=== PATIENT | male | born 1965 | race Caucasian/White ===

== ENCOUNTER 2022-05-13 22:12 | Observation (INO) | payer OTHER ==
[~2022-05-13] VITALS: Ht 175.3 cm; Wt 123.6 kg
[2022-05-13 22:34] VITALS: BP_SYST 158
--- NOTE | 2022-05-13 22:39 | NUR ---
PT from home with c/o chest pain x 3days, dizziness today, near syncopal, and abrasion to left lower leg. Pt ambulatory, A&O X4, and following simple commands. BG 273. VSS. made aware.
[2022-05-13 23:16] LABS: BASOPHILS # (AUTO) 0.1 K/uL (0.0-0.2); BASOPHILS % (AUTO) 0.5 % (0.0-2.0); EOSINOPHILS # (AUTO) 0.3 K/uL (0.0-0.4); EOSINOPHILS % (AUTO) 2.5 % (0.0-4.0); HEMATOCRIT 43.6 % (36-54); LYMPHOCYTES # (AUTO) 2.2 K/uL (1.0-5.5); LYMPHOCYTES % (AUTO) 19.4 % (20.5-51.5); MEAN CORPUSCULAR VOLUME 84 fL (79.0-98.0); MONOCYTES # (AUTO) 0.9 K/uL (0.0-1.0); MONOCYTES % (AUTO) 7.5 % (1.7-9.3); NEUTROPHILS # (AUTO) 8.1 K/uL (1.8-7.7); NEUTROPHILS % (AUTO) 70.1 % (40.0-70.0); PLATELET COUNT (AUTO) 165 K/uL (130-430); RED BLOOD CELL COUNT(AUTO) 5.21 MIL/uL (4.2-6.2); RED CELL DISTRIBUTION WIDTH 13.8 % (9.0-15.0); WHITE BLOOD COUNT (AUTO) 11.6 K/uL (4.8-10.8)
--- NOTE | 2022-05-13 23:25 | NUR ---
MD at bedside with patient for evaluation.
[2022-05-13 23:34] LABS: ANION GAP 6 (5-15); CALCIUM 8.9 mg/dL (8.4-11.0); CHLORIDE 98 mmol/L (98-107); CREATININE 1.41 mg/dL (0.55-1.30); GLUCOSE 308 mg/dL (70-99); POTASSIUM 3.6 mmol/L (3.5-5.1); UREA NITROGEN, BLOOD 28 mg/dL (8-21)
[2022-05-13 23:35] LABS: GFR AFRICAN AMERICAN 66 mL/min (>90)
[2022-05-13 23:36] LABS: BILIRUBIN,URINE NEGATIVE (NEGATIVE); BLOOD, URINE NEGATIVE (NEGATIVE); CLARITY/URINE CLEAR (CLEAR); COLOR,URINE YELLOW (YELLOW); GLUCOSE,URINE TRACE (NEGATIVE); KETONES,URINE NEGATIVE (NEGATIVE); LEUKOCYTE ESTERASE ,URINE NEGATIVE (NEGATIVE); NITRITE, URINE NEGATIVE (NEGATIVE); PROTEIN URINE TRACE (NEGATIVE); UROBILINOGEN,URINE 0.2 (0.2-1.0)
[2022-05-13 23:40] LABS: PROTHROMBIN TIME 10.5 SECS (9.5-12.5)
[2022-05-13 23:43] LABS: ALANINE AMINOTRANSFERASE 30 U/L (12-78); ALBUMIN 3.2 g/dL (3.4-4.8); ASPARTATE AMINOTRANSFERASE 19 U/L (10-37); TOTAL BILIRUBIN 0.6 mg/dL (0.0-1.0)
[2022-05-13] MEDS ORDERED: NITROGLYCERIN 1 INCH (GM) OINT. TP ONE (23:45)
[2022-05-13] MEDS ORDERED: PROCHLORPERAZINE EDISYLATE 10 MG/2 ML VIAL IVP ONE (23:45)
[2022-05-13] MEDS ORDERED: ASPIRIN 325 MG TABLET PO ONE (23:45)
[2022-05-13] MEDS ORDERED: MORPHINE 2 MG/ML INJ. SYRINGE IVP ONE (23:45)
[2022-05-14 00:14] LABS: RBC,URINE NONE SEEN /HPF (0-3)
[2022-05-14 00:15] LABS: BACTERIA,URINE RARE /HPF (None Seen); MUCUS,URINE None Seen /LPF (None Seen); WBC,URINE NONE SEEN /HPF (0-3)
--- NOTE | 2022-05-14 01:57 | NUR ---
COVID-19 ANTIGEN TEST SENT TO LAB.
[2022-05-14] MEDS ORDERED: LOSA100T3 PO (02:30)
[2022-05-14] MEDS ORDERED: FINA5TAB3 PO (02:30)
[2022-05-14] MEDS ORDERED: AMLO5TAB4 PO (02:30)
[2022-05-14] MEDS ORDERED: LOP600 PO (02:30)
[2022-05-14] MEDS ORDERED: FURO80TA86 PO (02:30)
[2022-05-14] MEDS ORDERED: NEU300 PO (02:30)
[2022-05-14] MEDS ORDERED: TAMS-11 PO (02:30)
[2022-05-14] MEDS ORDERED: SPIR25TA6 PO (02:30)
[2022-05-14] MEDS ORDERED: ASPI-1393 PO (02:30)
[2022-05-14] MEDS ORDERED: DOCU-144 PO (02:30)
[2022-05-14] MEDS ORDERED: MONT-40 PO (02:30)
[2022-05-14] MEDS ORDERED: ATEN50TA PO (02:30)
[2022-05-14] MEDS ORDERED: POTA-197 PO (02:30)
--- NOTE | 2022-05-14 02:45 | NUR ---
PT O2 sat decrease durinig sleep to 89%. NC applied at 2L, O2 SAT now 94%.
[2022-05-14] MEDS ORDERED: NACL 0.9% 1,000 ML IV ONE (03:00)
--- NOTE | 2022-05-14 03:05 | NUR ---
Admit bed requested Patient will be admitted to care of Dr. Stephen. Admitted to TELE OBS unit. Diagnosis SYNCOPE Inpatient (Yes or No) NO Observation (Yes or No) YES Orientation concerns or request close to nursing station (Yes or No) NO Covid Status NEGATIVE On vent or bipap NO Isolation requirements NO Needs a sitter NO From Home (Yes or if No enter name of facility) YES Requires Dialysis (Yes or No) NO Med Rec Completed (Yes of No) YES
--- NOTE | 2022-05-14 03:50 | NUR ---
Patient will be admitted to care of Dr. Stephen. Admitted to TELE OBS unit. Will go to room 124a. Belongings list completed. Complete and up to date summary report printed. SBAR report given to Lucía EUGENE at bedside with opportunity for questions.
--- NOTE | 2022-05-14 03:55 | NUR ---
ADMISSION NOTE Received patient from ER via gurney. Patient admitted with diagnosis of syncope. Patient is awake, alert, oriented X 4. Patient oriented to hospital room, call light, toileting, pain management and safety-teach back done. Patient informed that their room number is 124A. Personal belongings checked and Belongings List documented. Call light within reach.
[2022-05-14 04:16] VITALS: BP_SYST 106
[2022-05-14 04:19] VITALS: BP_SYST 110
[2022-05-14] MEDS ORDERED: NALOXONE HCL 0.4 MG/ML AMP (NARCAN) IVP PRN ×2 (08:15)
[2022-05-14] MEDS ORDERED: MUPIROCIN 2% TOPICAL OINTMENT 22 GM NS PRN (08:15)
[2022-05-14] MEDS ORDERED: ONDANSETRON HCL 4 MG/2 ML VIAL IVP PRN (08:15)
[2022-05-14] MEDS ORDERED: DOCUSATE SODIUM 100 MG CAPSULE PO PRN (08:15)
[2022-05-14] MEDS ORDERED: LORazepam 2 MG/ML VIAL IVP PRN (08:15)
[2022-05-14] MEDS ORDERED: ZOLPIDEM TARTRATE 5 MG TABLET PO PRN (08:15)
[2022-05-14] MEDS ORDERED: MORPHINE 2 MG/ML INJ. SYRINGE IVP PRN (08:15)
[2022-05-14] MEDS ORDERED: MAGNESIUM SULFATE 50 ML IV PRN (08:15)
[2022-05-14] MEDS ORDERED: ACETAMINOPHEN 325 MG TABLET PO PRN (08:15)
[2022-05-14 08:22] VITALS: BP_SYST 117
[2022-05-14] MEDS ORDERED: FUROSEMIDE 80 MG TABLET PO SCH (09:00)
[2022-05-14] MEDS ORDERED: ATENOLOL 50 MG TABLET (TENORMIN) PO SCH (09:00)
[2022-05-14] MEDS ORDERED: amLODIPine BESYLATE 5 MG TABLET PO SCH (09:00)
[2022-05-14] MEDS ORDERED: DOCUSATE SODIUM 100 MG CAPSULE PO SCH (09:00)
--- NOTE | 2022-05-14 09:38 | NUR ---
Opening Note: Report rcvd from outgoing RN,all cares assumed.
--- NOTE | 2022-05-14 09:45 | NUR ---
Dr. Hensley making rounds, report given, to review chart and place orders.
[2022-05-14] MEDS: GABAPENTIN 300 MG CAPSULE PO SCH ×3 (10:36→21:34)
[2022-05-14] MEDS: SPIRONOLACTONE 25 MG TABLET (ALDACTONE) PO SCH (10:36)
[2022-05-14] MEDS: GEMFIBROZIL 600 MG TABLET (LOPID) PO SCH ×2 (10:36→21:34)
[2022-05-14] MEDS: ASPIRIN 81 MG TABLET(ECOTRIN) PO SCH (10:37)
[2022-05-14] MEDS: FINASTERIDE 5 MG TABLET (PROSCAR) PO SCH (10:37)
[2022-05-14] MEDS ORDERED: FUROSEMIDE 40 MG/4 ML VIAL IVP ONE (11:00)
[2022-05-14] MEDS: TAMSULOSIN HCL 0.4 MG CAP PO SCH (11:17)
[2022-05-14] MEDS: LOSARTAN POTASSIUM 50 MG TABLET (COZAAR) PO SCH (11:18)
[2022-05-14] MEDS: NACL 0.9% 1,000 ML IV SCH ×2 (11:18→21:41)
[2022-05-14 12:00] VITALS: BP_SYST 123
--- NOTE | 2022-05-14 12:00 | NUR ---
Lunch tray given to patient, bed low and locked, all needs met.
[2022-05-14] MEDS: INSULIN REGULAR, HUMAN 100 UNITS/ML, 3 ML VIAL (humuLIN R) SUBCUT PRN ×3 (12:18→21:28)
[2022-05-14] MEDS: MORPHINE 2 MG/ML INJ. SYRINGE IVP PRN ×3 (12:19→21:36)
--- NOTE | 2022-05-14 12:21 | NUR ---
9/10 Back Pain reported, patient states he has "chronic back pain". PRN given per order.
--- NOTE | 2022-05-14 13:00 | NUR ---
Pain medication effective
--- NOTE | 2022-05-14 15:29 | NUR ---
US Tech at bedside
[2022-05-14 16:00] VITALS: BP_SYST 115
[2022-05-14] MEDS: MONTELUKAST 10 MG TABLET PO SCH (17:18)
--- NOTE | 2022-05-14 17:30 | NUR ---
7/10 chest Pain reported, none radiating, NSR on monitor, PRN Morphine given per order, MD aware, no new orders.
--- NOTE | 2022-05-14 17:50 | NUR ---
Pain medication effective
--- NOTE | 2022-05-14 18:49 | NUR ---
Closing Note: Report given to NOC RN, all cares endorsed.
[2022-05-14 20:00] VITALS: BP_SYST 137
[2022-05-14] MEDS: FUROSEMIDE 40 MG/4 ML VIAL IVP SCH (21:35)
--- NOTE | 2022-05-14 21:36 | NUR ---
Rounds/Pain Pt c/o mid chest pain. VSS. Medicated with Morphine 2mg IVP as needed . No c/o of sob or dizziness. Call light within reach. To monitor.
[2022-05-15 00:43] VITALS: BP_SYST 130
[2022-05-15] MEDS: INSULIN REGULAR, HUMAN 100 UNITS/ML, 3 ML VIAL (humuLIN R) SUBCUT PRN ×4 (06:24→20:39)
--- NOTE | 2022-05-15 06:40 | NUR ---
Closing notes Pt asleep, easily awakens. BS checked 276, 6 units insulin given. Safety maintained. To endorse to AM nurse.
[2022-05-15 07:28] LABS: BASOPHILS % (AUTO) 0.4 % (0.0-2.0); EOSINOPHILS # (AUTO) 0.3 K/uL (0.0-0.4); EOSINOPHILS % (AUTO) 3.1 % (0.0-4.0); HEMATOCRIT 42.9 % (36-54); HEMOGLOBIN 14.5 g/dL (14.0-18.0); LYMPHOCYTES # (AUTO) 1.4 K/uL (1.0-5.5); LYMPHOCYTES % (AUTO) 15.1 % (20.5-51.5); MEAN CORPUSCULAR HEMOGLOBIN 28 pg (27-31); MEAN CORPUSCULAR HGB CONC 34 % (32-36); MEAN CORPUSCULAR VOLUME 84 fL (79.0-98.0); MONOCYTES # (AUTO) 0.8 K/uL (0.0-1.0); MONOCYTES % (AUTO) 8.3 % (1.7-9.3); NEUTROPHILS % (AUTO) 73.1 % (40.0-70.0); PLATELET COUNT (AUTO) 155 K/uL (130-430); RED BLOOD CELL COUNT(AUTO) 5.13 MIL/uL (4.2-6.2); RED CELL DISTRIBUTION WIDTH 13.5 % (9.0-15.0); WHITE BLOOD COUNT (AUTO) 9.5 K/uL (4.8-10.8)
[2022-05-15 07:55] VITALS: BP_SYST 148
--- NOTE | 2022-05-15 07:55 | NUR ---
INITIAL ROUNDS Received pt AAOx4, no s/s resp distress, c/o chest pain to mid chest area-will check on pain medication. No c/o dizziness at this time. Plan of care for the day reviewed with pt-pt verbalized his understanding. IVF infusing well to RAC at ordered rate with no s/s infiltration to site. Pain management, disease process, skin and safety discussed-teach back done. Call light within reach.
[2022-05-15] MEDS: MORPHINE 2 MG/ML INJ. SYRINGE IVP PRN ×2 (08:44→20:41)
[2022-05-15] MEDS: TAMSULOSIN HCL 0.4 MG CAP PO SCH (08:45)
[2022-05-15] MEDS: FUROSEMIDE 40 MG/4 ML VIAL IVP SCH ×2 (08:45→20:21)
[2022-05-15] MEDS: ASPIRIN 81 MG TABLET(ECOTRIN) PO SCH (08:45)
[2022-05-15] MEDS: SPIRONOLACTONE 25 MG TABLET (ALDACTONE) PO SCH (08:46)
[2022-05-15] MEDS: FINASTERIDE 5 MG TABLET (PROSCAR) PO SCH (08:46)
[2022-05-15] MEDS: GABAPENTIN 300 MG CAPSULE PO SCH ×3 (08:46→20:21)
[2022-05-15] MEDS: LOSARTAN POTASSIUM 50 MG TABLET (COZAAR) PO SCH (08:47)
[2022-05-15] MEDS: GEMFIBROZIL 600 MG TABLET (LOPID) PO SCH ×2 (08:48→20:21)
[2022-05-15 08:49] LABS: CALCIUM 8.3 mg/dL (8.4-11.0); CREATININE 1.03 mg/dL (0.55-1.30); POTASSIUM 3.5 mmol/L (3.5-5.1)
[2022-05-15 08:52] LABS: TOTAL BILIRUBIN 0.6 mg/dL (0.0-1.0)
--- NOTE | 2022-05-15 09:44 | NUR ---
TO MRI Pt left floor via wheelchair to MRI in no distress.
--- NOTE | 2022-05-15 10:35 | NUR ---
BACK FROM MRI Pt back from MRI in no distress. property assessment monitor placed back onto pt. No c/o pain or discomfort. Call light within reach.
--- NOTE | 2022-05-15 12:20 | NUR ---
WOUND CARE Wound care nurse saw patient and provided wound care instructions. Wound cleansed with normal saline, photo taken, sure prep applied to the periwound area, Therahoney sheet placed over wound bed, Hydrogel placed onto Therahoney sheet and covered with an Optifoam AG dressing. Foot elevated on a pillow.
--- NOTE | 2022-05-15 12:20 | NUR ---
WOUND EVALUATION: Late note for 1220 secondary to patient care. Wound Consult received from Dr. Stephen. Thank you, Dr. Stephen, for the consult. Patient received in a [place] Bed with an Atmos Air 9000 mattress, awake, alert, and oriented. Patient is able to turn independently. Javier Score is a 22. Past Medical History: Obesity, Diabetes Mellitus, Hypertension, Neuropathy, BPH, questionable CHF, COPD, Dyslipidemia. Recent Labs: WBC 9.5, RBC 5.13, hemoglobin 14.5, hematocrit 42.9, BUN 20, creatinine 1.03, GFR 79, calcium 8.3, glucose 269, POC glucose 273, serum total protein 6.0, albumin 3.0. Intrinsic factors that delay wound healing: Obesity, Diabetes Mellitus, CHF, COPD, Neuropathy. Extrinsic factors that delay wound healing: Decreased mobility. No microbiology reports. Wound Assessment: 1. Left Anterior Briones: Blister, present on admission. Patient reported to the nurse that his blister had opened. Suspect Diabetic/Neuropathic Ulcer versus Venous Insufficiency Ulcer. Wound bed has 70% pink tissue, 30% white tissue. No odor, scant serosanguineous drainage. Periwound intact. Wound measures 4.4 cm x 3.5 cm. Recommend: Cleanse wound with normal saline. Apply SurePrep to josefa-wound. Cut Thera-Honey dressing to size and place over wound. Apply small drop of Hydrogel onto Thera-Honey dressing. Cover with Silver Foam AG 4x4 dressing. Perform wound care daily, and as needed for dressing soiling or dislodgement. Also recommend: Encourage patient to reposition every 2 hours. Offload, elevate and float bilateral lower extremities with pillows. Perform skin care and monitor skin integrity Q shift.
--- NOTE | 2022-05-15 12:36 | NUR ---
C/O DIZZINESS/MD CALLED Pt stated he got up from the bathroom and then got dizzy. Vital signs checked BP 142/85, HR 77, SAO2 94% on room air. Called Dr. Stephen and informed him and MD stated classic Vaso-vagal response. stated to monitor pt's vital signs and to call him if the MRI results are abnormal. If vital signs stable and MRI normal then okay to discharge pt home.
[2022-05-15 13:35] VITALS: BP_SYST 142
[2022-05-15] MEDS ORDERED: HONEY WOUND DRESSING 1 EACH TP PRN (16:15)
[2022-05-15 18:13] VITALS: BP_SYST 109
[2022-05-15] MEDS: MONTELUKAST 10 MG TABLET PO SCH (19:05)
--- NOTE | 2022-05-15 19:31 | NUR ---
CLOSING NOTE Pt sitting up in bed with no s/s resp distress, no c/o pain or discomfort. Still awaiting MRI results. Needs met, call light within reach.
[2022-05-15 20:00] VITALS: BP_SYST 146
--- NOTE | 2022-05-15 20:00 | NUR ---
IV ADMINISTRATION END TIME (Observation Patients ONLY): IV infusion of NS @ 70 started at 05/14/22 and ended at 05/15/22.
--- NOTE | 2022-05-15 20:31 | NUR ---
JULIO CÉSAR AND SPOKE WITH MD SPOKE WITH DR. HARTMAN AND INFORMED HIM MRI RESULT WAS NEGATIVE, BUT PT STATES HE HAS NO RIDE TONIGHT AND C/O LUMP ON R. NECK. PER MD OK TO DISCHARGE TOMORROW AM AND F/U LUMP OUTPATIENT.
[2022-05-16] VITALS: BP_SYST 102
--- NOTE | 2022-05-16 06:50 | NUR ---
CLOSING NOTES PT AAOX4, BS CHECKED 375, 10 UNITS REG INSULIN ADMINISTERED. PT DENIES ANY DIZZINESS. C/O CP 03/20, MEDICATED WITH MORPHINE 2MG IVP NEEDED. SAFETY MAINTAINED. TO ENDORSE TO AM NURSE.
[2022-05-16] MEDS: INSULIN REGULAR, HUMAN 100 UNITS/ML, 3 ML VIAL (humuLIN R) SUBCUT PRN ×2 (07:04→11:33)
[2022-05-16] MEDS: MORPHINE 2 MG/ML INJ. SYRINGE IVP PRN ×2 (07:09→11:31)
[2022-05-16 07:25] LABS: BASOPHILS % (AUTO) 0.6 % (0.0-2.0); EOSINOPHILS # (AUTO) 0.2 K/uL (0.0-0.4); HEMATOCRIT 44.8 % (36-54); HEMOGLOBIN 15.3 g/dL (14.0-18.0); LYMPHOCYTES # (AUTO) 1.5 K/uL (1.0-5.5); LYMPHOCYTES % (AUTO) 18.5 % (20.5-51.5); MEAN CORPUSCULAR HEMOGLOBIN 29 pg (27-31); MEAN CORPUSCULAR HGB CONC 34 % (32-36); MEAN CORPUSCULAR VOLUME 84 fL (79.0-98.0); MONOCYTES # (AUTO) 0.7 K/uL (0.0-1.0); MONOCYTES % (AUTO) 8.5 % (1.7-9.3); NEUTROPHILS # (AUTO) 5.5 K/uL (1.8-7.7); NEUTROPHILS % (AUTO) 69.4 % (40.0-70.0); PLATELET COUNT (AUTO) 159 K/uL (130-430); RED BLOOD CELL COUNT(AUTO) 5.31 MIL/uL (4.2-6.2); RED CELL DISTRIBUTION WIDTH 13.3 % (9.0-15.0)
[2022-05-16 07:41] LABS: CALCIUM 8.6 mg/dL (8.4-11.0); CREATININE 0.99 mg/dL (0.55-1.30); POTASSIUM 3.4 mmol/L (3.5-5.1)
[2022-05-16] MEDS: GEMFIBROZIL 600 MG TABLET (LOPID) PO SCH (08:33)
[2022-05-16] MEDS: TAMSULOSIN HCL 0.4 MG CAP PO SCH (08:33)
[2022-05-16] MEDS: LOSARTAN POTASSIUM 50 MG TABLET (COZAAR) PO SCH (08:33)
[2022-05-16] MEDS: FINASTERIDE 5 MG TABLET (PROSCAR) PO SCH (08:33)
[2022-05-16] MEDS: GABAPENTIN 300 MG CAPSULE PO SCH (08:34)
[2022-05-16] MEDS: ASPIRIN 81 MG TABLET(ECOTRIN) PO SCH (08:34)
[2022-05-16] MEDS: SPIRONOLACTONE 25 MG TABLET (ALDACTONE) PO SCH (08:35)
[2022-05-16] MEDS: FUROSEMIDE 40 MG/4 ML VIAL IVP SCH (08:35)
--- NOTE | 2022-05-16 12:30 | NUR ---
A/OX4,VSS,AMBULATORY AROUND BY SELF.SEEN BY THIS AM AND D/C HOME PER DR ORDER.LEFT SHEEN WOUND CLEANED AND DRESSING CHANGED WITH COLT PER ORDER,D/C IV,D/C UM RN PRIOR TO D/C
--- NOTE | 2022-05-16 15:40 | NUR ---
Dispo code 01
== END 2022-05-16 12:40 | disposition home or self-care (01) ==
LOC: SED 22:12 → STU 05-14 03:00
PROVIDERS: ADMIT General Practice; ATTEND General Practice
DX: G90.9 Disorder of the autonomic nervous system, unspecified (principal); Z20.822 Contact with and (suspected) exposure to COVID-19; R55 Syncope and collapse; E11.65 Type 2 diabetes mellitus with hyperglycemia; E11.43 Type 2 diabetes mellitus with diabetic autonomic (poly)neuropathy; E11.40 Type 2 diabetes mellitus with diabetic neuropathy, unspecified; E44.1 Mild protein-calorie malnutrition; E66.9 Obesity, unspecified; I12.9 Hypertensive chronic kidney disease with stage 1 through stage 4 chronic kidney disease, or unspecified chronic kidney disease; E11.22 Type 2 diabetes mellitus with diabetic chronic kidney disease; N18.30 Chronic kidney disease, stage 3 unspecified; N40.0 Benign prostatic hyperplasia without lower urinary tract symptoms; N17.0 Acute kidney failure with tubular necrosis; E78.00 Pure hypercholesterolemia, unspecified; E78.5 Hyperlipidemia, unspecified; R07.89 Other chest pain; Z79.899 Other long term (current) drug therapy
CPT/HCPCS: 80053 ×2; 81000; 82962 ×4; 83880 ×2; 85025 ×3; 85610; 85730; 84484 ×3; 36415 ×3; 93005 ×2; 71045; 96361 ×2; 96372 ×3; 96374; 96375; 96376 ×3; 93306; 70450; 76376; 93880; 99285; 83036; 87426; 80061; 83735 ×2; 70551; 80048; J0780; J2270 ×4; J1940 ×3; G0378 ×3; J1815

== ENCOUNTER 2022-07-08 13:45 | Inpatient (IN) | payer MEDICAID, OTHER ==
[~2022-07-08] VITALS: Ht 180.3 cm; Wt 117.5 kg
[~2022-07-08 13:45] MED LIST: AMOX-423 PO; ASPI-1393 PO; Bisacodyl Suppository RC; DOCU-144 PO; FINA5TAB3 PO; FURO-150 PO; INSU100V SUBCUT; INSU100V9 SUBCUT; LOP600 PO; LOSA100T3 PO; MONT-40 PO; NEU300 PO; NOR10 PO; TAMS-11 PO; VITD2000 PO
[2022-07-08 14:35] VITALS: BP_SYST 144
[2022-07-08 18:42] LABS: BILIRUBIN,URINE NEGATIVE (NEGATIVE); BLOOD, URINE 2+ (NEGATIVE); CLARITY/URINE CLOUDY (CLEAR); COLOR,URINE YELLOW (YELLOW); GLUCOSE,URINE 3+ (NEGATIVE); KETONES,URINE NEGATIVE (NEGATIVE); LEUKOCYTE ESTERASE ,URINE 2+ (NEGATIVE); NITRITE, URINE NEGATIVE (NEGATIVE); PROTEIN URINE 1+ (NEGATIVE); UROBILINOGEN,URINE 0.2 (0.2-1.0)
[2022-07-08 18:46] LABS: BASOPHILS # (AUTO) 0.1 K/uL (0.0-0.2); BASOPHILS % (AUTO) 0.7 % (0.0-2.0); EOSINOPHILS # (AUTO) 0.4 K/uL (0.0-0.4); EOSINOPHILS % (AUTO) 3.3 % (0.0-4.0); HEMATOCRIT 39.1 % (36-54); HEMOGLOBIN 13.2 g/dL (14.0-18.0); LYMPHOCYTES # (AUTO) 1.6 K/uL (1.0-5.5); MEAN CORPUSCULAR HEMOGLOBIN 28 pg (27-31); MEAN CORPUSCULAR HGB CONC 34 % (32-36); MEAN CORPUSCULAR VOLUME 84 fL (79.0-98.0); MONOCYTES # (AUTO) 0.7 K/uL (0.0-1.0); MONOCYTES % (AUTO) 5.7 % (1.7-9.3); NEUTROPHILS # (AUTO) 9.7 K/uL (1.8-7.7); NEUTROPHILS % (AUTO) 77.3 % (40.0-70.0); PLATELET COUNT (AUTO) 253 K/uL (130-430); RED BLOOD CELL COUNT(AUTO) 4.67 MIL/uL (4.2-6.2); RED CELL DISTRIBUTION WIDTH 14.1 % (9.0-15.0); WHITE BLOOD COUNT (AUTO) 12.5 K/uL (4.8-10.8)
[2022-07-08 19:07] LABS: BACTERIA,URINE MANY /HPF (None Seen); WBC,URINE >100 /HPF (0-3)
[2022-07-08 19:08] LABS: MUCUS,URINE None Seen /LPF (None Seen)
[2022-07-08 19:13] LABS: CALCIUM 9.7 mg/dL (8.4-11.0); CREATININE 1.22 mg/dL (0.55-1.30)
[2022-07-08 19:18] LABS: ALBUMIN 3.5 g/dL (3.4-4.8); TOTAL BILIRUBIN 0.5 mg/dL (0.0-1.0)
[2022-07-08] MEDS ORDERED: NACL 0.9% 1,000 ML IV ONE (19:45)
[2022-07-08] MEDS ORDERED: cefTRIAXone 1 GM in D5W 50 ML IV ONE (19:45)
[2022-07-08] MEDS ORDERED: INSULIN REGULAR, HUMAN 10 UNITS/0.1 ML, 3 ML VIAL IVP ONE (19:45)
[2022-07-08] MEDS ORDERED: ACETAMINOPHEN 325 MG TABLET PO PRN (20:45)
[2022-07-08] MEDS ORDERED: ZOLPIDEM TARTRATE 5 MG TABLET PO PRN (20:45)
[2022-07-08] MEDS ORDERED: POTASSIUM CHLORIDE 20 MEQ TAB.PRT.SR PO PRN (20:45)
[2022-07-08] MEDS ORDERED: NALOXONE HCL 0.4 MG/ML AMP (NARCAN) IVP PRN ×2 (20:45)
[2022-07-08] MEDS ORDERED: MAGNESIUM SULFATE 50 ML IV PRN (20:45)
[2022-07-08] MEDS ORDERED: DOCUSATE SODIUM 100 MG CAPSULE PO PRN (20:45)
[2022-07-08] MEDS ORDERED: NACL 0.9% 1,000 ML IV SCH (20:45)
[2022-07-08] MEDS ORDERED: LORazepam 2 MG/ML VIAL IVP PRN (20:45)
[2022-07-08] MEDS ORDERED: DEXTROSE 50% JECT 50 ML DISP.SYRIN IVP PRN (20:45)
[2022-07-08] MEDS ORDERED: ONDANSETRON HCL 4 MG/2 ML VIAL IVP PRN (20:45)
[2022-07-08] MEDS ORDERED: MUPIROCIN 2% TOPICAL OINTMENT 22 GM NS PRN (20:45)
[2022-07-08] MEDS ORDERED: FUROSEMIDE 20 MG TABLET PO PRN (20:45)
[2022-07-08] MEDS: GABAPENTIN 300 MG CAPSULE PO SCH (21:00)
[2022-07-08] MEDS: GEMFIBROZIL 600 MG TABLET (LOPID) PO SCH (21:00)
[2022-07-08] MEDS: INSULIN GLARGINE 100 UNITS/ML, 10 ML VIAL SUBCUT SCH (21:00)
[2022-07-08] MEDS ORDERED: DOCUSATE SODIUM 100 MG CAPSULE PO SCH (21:00)
[2022-07-08] MEDS ORDERED: MORPHINE 4 MG INJ. 4 MG/ML VIAL IVP ONE ×2 (21:45→23:45)
[2022-07-08] MEDS ORDERED: cefTRIAXone 1 GM IVPB PREMIX 50 ML IV ONE (23:03)
[2022-07-09 00:45] VITALS: BP_SYST 161
[2022-07-09 08:35] LABS: BASOPHILS % (AUTO) 0.3 % (0.0-2.0); EOSINOPHILS # (AUTO) 0.3 K/uL (0.0-0.4); EOSINOPHILS % (AUTO) 2.4 % (0.0-4.0); HEMATOCRIT 37.5 % (36-54); HEMOGLOBIN 12.6 g/dL (14.0-18.0); LYMPHOCYTES % (AUTO) 7.2 % (20.5-51.5); MEAN CORPUSCULAR HEMOGLOBIN 28 pg (27-31); MEAN CORPUSCULAR HGB CONC 34 % (32-36); MEAN CORPUSCULAR VOLUME 83 fL (79.0-98.0); MONOCYTES # (AUTO) 0.9 K/uL (0.0-1.0); MONOCYTES % (AUTO) 6.5 % (1.7-9.3); NEUTROPHILS % (AUTO) 83.6 % (40.0-70.0); PLATELET COUNT (AUTO) 222 K/uL (130-430); WHITE BLOOD COUNT (AUTO) 14.3 K/uL (4.8-10.8)
[2022-07-09 08:54] LABS: CALCIUM 8.9 mg/dL (8.4-11.0); CREATININE 0.97 mg/dL (0.55-1.30)
[2022-07-09] MEDS: TAMSULOSIN HCL 0.4 MG CAP PO SCH (09:29)
[2022-07-09] MEDS: ASPIRIN 81 MG TABLET(ECOTRIN) PO SCH (09:29)
[2022-07-09] MEDS: GEMFIBROZIL 600 MG TABLET (LOPID) PO SCH (09:29)
[2022-07-09] MEDS: LOSARTAN POTASSIUM 50 MG TABLET (COZAAR) PO SCH (09:29)
[2022-07-09] MEDS: amLODIPine BESYLATE 10 MG TABLET PO SCH (09:30)
[2022-07-09] MEDS: GABAPENTIN 300 MG CAPSULE PO SCH ×2 (09:30→16:14)
[2022-07-09] MEDS: FINASTERIDE 5 MG TABLET (PROSCAR) PO SCH (09:30)
[2022-07-09] MEDS: MORPHINE 2 MG/ML INJ. SYRINGE IVP PRN ×3 (09:32→21:00)
[2022-07-09 17:54] VITALS: BP_SYST 181
[2022-07-09] MEDS ORDERED: MONTELUKAST 10 MG TABLET PO SCH (18:00)
[2022-07-09 20:17] VITALS: BP_SYST 110
[2022-07-09] MEDS: INSULIN LISPRO SLIDING SCALE 100 UNITS/ML, 3 ML VIAL (humaLOG) SUBCUT PRN (21:00)
[2022-07-09] MEDS: metroNIDAZOLE 500 mg/NS 100 ML IV SCH (21:00)
[2022-07-09] MEDS ORDERED: cefTRIAXone 1 GM in D5W 50 ML IV SCH (21:00)
[2022-07-09 23:40] LABS: OPIATE, URINE POSITIVE (NEG <=100)
[2022-07-09 23:41] LABS: BARBITURATE, URINE NEGATIVE (NEG <=200); BENZODIAZEPINE, URINE NEGATIVE (NEG <=150); CANNABINOID, URINE NEGATIVE (NEG <=50); COCAINE, URINE NEGATIVE (NEG <=150); METHAMPHETAMINES SCREEN,URINE NEGATIVE (NEG <=500); PHENCYCLIDINE SCREEN,URINE NEGATIVE (NEG <=25); UR TRICYCLIC ANTIDEPRESSANTS POSITIVE (NEG <=300); URINE AMPHETAMINE NEGATIVE (NEG <=500); URINE METHADONE NEGATIVE (NEG <=200); URINE OXYCODONE SCREEN NEGATIVE (NEG <=100); URINE PROPOXYPHENE SCREEN NEGATIVE (NEG <=300)
[2022-07-10 00:25] VITALS: BP_SYST 143
[2022-07-10] MEDS: GABAPENTIN 300 MG CAPSULE PO SCH ×3 (01:12→15:00)
[2022-07-10] MEDS: GEMFIBROZIL 600 MG TABLET (LOPID) PO SCH ×2 (01:13→09:31)
[2022-07-10] MEDS: INSULIN GLARGINE 100 UNITS/ML, 10 ML VIAL SUBCUT SCH (01:32)
[2022-07-10] MEDS: metroNIDAZOLE 500 mg/NS 100 ML IV SCH ×2 (05:58→13:00)
[2022-07-10] MEDS: MORPHINE 2 MG/ML INJ. SYRINGE IVP PRN ×2 (06:03→12:32)
[2022-07-10] MEDS: INSULIN LISPRO SLIDING SCALE 100 UNITS/ML, 3 ML VIAL (humaLOG) SUBCUT PRN ×3 (06:46→12:34)
[2022-07-10 06:53] LABS: CALCIUM 9.2 mg/dL (8.4-11.0); CREATININE 1.01 mg/dL (0.55-1.30)
[2022-07-10 06:56] LABS: BASOPHILS # (AUTO) 0.1 K/uL (0.0-0.2); BASOPHILS % (AUTO) 0.5 % (0.0-2.0); EOSINOPHILS # (AUTO) 0.4 K/uL (0.0-0.4); EOSINOPHILS % (AUTO) 3.6 % (0.0-4.0); HEMATOCRIT 36.4 % (36-54); HEMOGLOBIN 12.2 g/dL (14.0-18.0); LYMPHOCYTES # (AUTO) 1.4 K/uL (1.0-5.5); LYMPHOCYTES % (AUTO) 13.7 % (20.5-51.5); MEAN CORPUSCULAR HEMOGLOBIN 28 pg (27-31); MEAN CORPUSCULAR HGB CONC 34 % (32-36); MEAN CORPUSCULAR VOLUME 85 fL (79.0-98.0); MONOCYTES # (AUTO) 0.8 K/uL (0.0-1.0); MONOCYTES % (AUTO) 7.2 % (1.7-9.3); NEUTROPHILS # (AUTO) 7.9 K/uL (1.8-7.7); PLATELET COUNT (AUTO) 252 K/uL (130-430); RED CELL DISTRIBUTION WIDTH 14.2 % (9.0-15.0); WHITE BLOOD COUNT (AUTO) 10.5 K/uL (4.8-10.8)
[2022-07-10 08:00] VITALS: BP_SYST 143
[2022-07-10] MEDS ORDERED: SULF1TAB48 PO (08:00)
[2022-07-10] MEDS: FINASTERIDE 5 MG TABLET (PROSCAR) PO SCH (09:28)
[2022-07-10] MEDS: ASPIRIN 81 MG TABLET(ECOTRIN) PO SCH (09:28)
[2022-07-10] MEDS: LOSARTAN POTASSIUM 50 MG TABLET (COZAAR) PO SCH (09:28)
[2022-07-10] MEDS: amLODIPine BESYLATE 10 MG TABLET PO SCH (09:29)
[2022-07-10] MEDS: TAMSULOSIN HCL 0.4 MG CAP PO SCH (09:31)
[2022-07-10 15:36] VITALS: BP_SYST 143
== END 2022-07-10 16:00 | disposition home or self-care (01) | DRG 720 ==
LOC: SED 13:45 → SMU 20:21
PROVIDERS: ADMIT General Practice; ATTEND General Practice
DX: A41.9 Sepsis, unspecified organism (principal); E11.40 Type 2 diabetes mellitus with diabetic neuropathy, unspecified; N12 Tubulo-interstitial nephritis, not specified as acute or chronic; E11.65 Type 2 diabetes mellitus with hyperglycemia; E66.9 Obesity, unspecified; E78.5 Hyperlipidemia, unspecified; E86.0 Dehydration; N40.0 Benign prostatic hyperplasia without lower urinary tract symptoms; Z20.822 Contact with and (suspected) exposure to COVID-19; I10 Essential (primary) hypertension; Z91.199 Patient's noncompliance with other medical treatment and regimen due to unspecified reason; Z68.36 Body mass index [BMI] 36.0-36.9, adult
CPT/HCPCS: 36415; 80048; 80053; 80307; 81000; 82962; 83036; 83690; 83735; 85025; 87077; 87081; 87086; 96361; 96365; 96366; 96372; 96375; 99285; J0696; J2270; J3490; J7060

== ENCOUNTER 2022-08-04 09:43 | Inpatient (IN) | payer MEDICAID ==
[~2022-08-04] VITALS: Ht 175.3 cm; Wt 124.3 kg
[~2022-08-04 09:43] MED LIST changes: -AMOX-423 PO; +SULF1TAB48 PO
[2022-08-04 09:49] VITALS: BP_SYST 198
--- NOTE | 2022-08-04 09:52 | NUR ---
Placed in room 03 . Placed on nuclear auxiliary operator, blood pressure machine and pulse oximeter. To gown for exam. Side rails up. Report given to VALORIE VILLA.
--- NOTE | 2022-08-04 09:54 | NUR ---
PATIENT CAME TO ER FROM HOME C/O SLURRED SPEECH SINCE YESTERDAY/ UNABLE TO WALK PLACE IN BED, SEEN BY EDP WITH ORDER ACACIA OUT.
[2022-08-04] MEDS ORDERED: ASPIRIN 81 MG TAB.CHEW PO ONE (10:00)
--- NOTE | 2022-08-04 10:25 | NUR ---
PATIENT TAKEN TO CT SCAN/X-RAY.
--- NOTE | 2022-08-04 10:38 | NUR ---
PATIENT BACK IN BED ON CIRCUIT BOARD DRAFTER, WILL CONTINUE TO MONITOR.
[2022-08-04 10:41] LABS: BASOPHILS # (AUTO) 0.1 K/uL (0.0-0.2); BASOPHILS % (AUTO) 0.4 % (0.0-2.0); HEMATOCRIT 40.7 % (36-54); HEMOGLOBIN 13.4 g/dL (14.0-18.0); LYMPHOCYTES # (AUTO) 1.1 K/uL (1.0-5.5); LYMPHOCYTES % (AUTO) 5.6 % (20.5-51.5); MEAN CORPUSCULAR HEMOGLOBIN 28 pg (27-31); MEAN CORPUSCULAR HGB CONC 33 % (32-36); MEAN CORPUSCULAR VOLUME 84 fL (79.0-98.0); MONOCYTES # (AUTO) 1.4 K/uL (0.0-1.0); MONOCYTES % (AUTO) 7.4 % (1.7-9.3); NEUTROPHILS # (AUTO) 16.2 K/uL (1.8-7.7); NEUTROPHILS % (AUTO) 86.6 % (40.0-70.0); PLATELET COUNT (AUTO) 191 K/uL (130-430); RED BLOOD CELL COUNT(AUTO) 4.86 MIL/uL (4.2-6.2); RED CELL DISTRIBUTION WIDTH 13.7 % (9.0-15.0); WHITE BLOOD COUNT (AUTO) 18.7 K/uL (4.8-10.8)
--- NOTE | 2022-08-04 10:55 | NUR ---
EDP AT BEDSIDE FOR FURTHER ASSESSMENT.
[2022-08-04 11:08] LABS: ANION GAP 9 (5-15); CALCIUM 9.2 mg/dL (8.4-11.0); CHLORIDE 96 mmol/L (98-107); CREATININE 1.65 mg/dL (0.55-1.30); UREA NITROGEN, BLOOD 23 mg/dL (8-21)
[2022-08-04 11:15] LABS: GFR AFRICAN AMERICAN 55 mL/min (>90)
[2022-08-04 11:16] LABS: ALANINE AMINOTRANSFERASE 20 U/L (12-78); ALBUMIN 3.2 g/dL (3.4-4.8); ASPARTATE AMINOTRANSFERASE 20 U/L (10-37); TOTAL BILIRUBIN 0.8 mg/dL (0.0-1.0)
[2022-08-04 11:18] LABS: GLUCOSE 448 mg/dL (70-99)
[2022-08-04] MEDS ORDERED: NACL 0.9% 1,000 ML IV ONE (11:30)
[2022-08-04] MEDS ORDERED: INSULIN REGULAR, HUMAN 10 UNITS/0.1 ML, 3 ML VIAL IVP ONE (11:30)
[2022-08-04] MEDS ORDERED: MECLIZINE HCL 25 MG TABLET (ANITVERT) PO ONE (11:45)
[2022-08-04] MEDS ORDERED: cefTRIAXone 1 GM IVPB PREMIX 50 ML IV ONE (12:45)
--- NOTE | 2022-08-04 13:11 | NUR ---
covid swab collected
--- NOTE | 2022-08-04 13:40 | NUR ---
Admit bed requested Patient will be admitted to care of . Admitted to M/S unit. Diagnosis UTI Inpatient (Yes or No)Y Observation (Yes or No)N Orientation concerns or request close to nursing station (Yes or No) Covid Status PENDING On vent or bipapN Isolation requirementsN Needs a sitter N From Home (Yes or if No enter name of facility)Y Requires Dialysis (Yes or No) N Med Rec Completed (Yes of No)N
[2022-08-04] MEDS ORDERED: MAGNESIUM SULFATE 50 ML IV PRN (13:45)
[2022-08-04] MEDS ORDERED: LORazepam 2 MG/ML VIAL IVP PRN (13:45)
[2022-08-04] MEDS: NACL 0.9% 1,000 ML IV SCH (13:45)
[2022-08-04] MEDS ORDERED: DOCUSATE SODIUM 100 MG CAPSULE PO PRN (13:45)
[2022-08-04] MEDS ORDERED: ZOLPIDEM TARTRATE 5 MG TABLET PO PRN (13:45)
[2022-08-04] MEDS ORDERED: FUROSEMIDE 20 MG TABLET PO PRN (13:45)
[2022-08-04] MEDS ORDERED: ONDANSETRON HCL 4 MG/2 ML VIAL IVP PRN (13:45)
[2022-08-04] MEDS ORDERED: MORPHINE 2 MG/ML INJ. SYRINGE IVP PRN (13:45)
[2022-08-04] MEDS ORDERED: MUPIROCIN 2% TOPICAL OINTMENT 22 GM NS PRN (13:45)
[2022-08-04] MEDS ORDERED: ACETAMINOPHEN 325 MG TABLET PO PRN ×2 (13:45→14:00)
[2022-08-04] MEDS ORDERED: POTASSIUM CHLORIDE 20 MEQ TAB.PRT.SR PO PRN (13:45)
[2022-08-04] MEDS ORDERED: amLODIPine BESYLATE 10 MG TABLET PO ONE (14:30)
[2022-08-04] MEDS ORDERED: LOSARTAN POTASSIUM 50 MG TABLET (COZAAR) PO ONE (14:30)
--- NOTE | 2022-08-04 17:15 | NUR ---
PATIENT ASSISTED WITH REPOSITIONED AND SHEETS CHANGED.
[2022-08-04] MEDS: MONTELUKAST 10 MG TABLET PO SCH (17:31)
--- NOTE | 2022-08-04 20:00 | NUR ---
report was given from other nurse. pt is resting. alert and oriented x 4. pt has and open wound on the left lower leg.
[2022-08-04 20:48] LABS: BILIRUBIN,URINE NEGATIVE (NEGATIVE); BLOOD, URINE 2+ (NEGATIVE); CLARITY/URINE CLOUDY (CLEAR); COLOR,URINE YELLOW (YELLOW); GLUCOSE,URINE 2+ (NEGATIVE); KETONES,URINE NEGATIVE (NEGATIVE); LEUKOCYTE ESTERASE ,URINE 2+ (NEGATIVE); NITRITE, URINE POSITIVE (NEGATIVE); PROTEIN URINE 2+ (NEGATIVE); UROBILINOGEN,URINE 0.2 (0.2-1.0)
[2022-08-04 21:11] LABS: BACTERIA,URINE MODERATE /HPF (None Seen); MUCUS,URINE 1+ /LPF (None Seen); WBC,URINE >100 /HPF (0-3)
[2022-08-04] MEDS: GABAPENTIN 300 MG CAPSULE PO SCH (22:11)
[2022-08-04] MEDS: GEMFIBROZIL 600 MG TABLET (LOPID) PO SCH (22:11)
[2022-08-04] MEDS: HEPARIN SODIUM,PORCINE 5,000 UNITS/ML VIAL SUBCUT SCH (22:14)
[2022-08-04] MEDS: INSULIN NPH/REGULAR 70-30, 100 UNITS/ML, 3 ML VIAL SUBCUT SCH (22:31)
--- NOTE | 2022-08-04 23:00 | NUR ---
put dressing on the left leg open wound. pt is tolerated well. lowered bed. side rail up
[2022-08-05] MEDS: NACL 0.9% 1,000 ML IV SCH ×2 (03:26→12:59)
--- NOTE | 2022-08-05 05:35 | NUR ---
pt is resting, his turning and reposition by himself. no acute respiratory distress noted
[2022-08-05] MEDS ORDERED: INSULIN REGULAR, HUMAN 10 UNITS/0.1 ML, 3 ML VIAL ONE (07:27)
[2022-08-05 07:32] LABS: BASOPHILS # (AUTO) 0.1 K/uL (0.0-0.2); BASOPHILS % (AUTO) 0.3 % (0.0-2.0); HEMATOCRIT 40.7 % (36-54); HEMOGLOBIN 13.6 g/dL (14.0-18.0); LYMPHOCYTES % (AUTO) 4.8 % (20.5-51.5); MEAN CORPUSCULAR HEMOGLOBIN 28 pg (27-31); MEAN CORPUSCULAR HGB CONC 33 % (32-36); MEAN CORPUSCULAR VOLUME 83 fL (79.0-98.0); MONOCYTES # (AUTO) 1.5 K/uL (0.0-1.0); NEUTROPHILS # (AUTO) 18.8 K/uL (1.8-7.7); NEUTROPHILS % (AUTO) 87.9 % (40.0-70.0); PLATELET COUNT (AUTO) 169 K/uL (130-430); RED CELL DISTRIBUTION WIDTH 13.9 % (9.0-15.0); WHITE BLOOD COUNT (AUTO) 21.4 K/uL (4.8-10.8)
[2022-08-05 07:51] LABS: CALCIUM 8.8 mg/dL (8.4-11.0); CREATININE 1.55 mg/dL (0.55-1.30)
--- NOTE | 2022-08-05 08:56 | NUR ---
ASSUMED PATIENT CARE ON MEAT SCRUBBER, EYE CLOSE EASILY AROUSE, NO ACUTE DISTRESS NOTED, WILL CONTINUE TO MONITOR.
[2022-08-05] MEDS ORDERED: cefTRIAXone 1 GM in D5W 50 ML IV SCH (09:00)
[2022-08-05] MEDS: PIPERACILLIN/TAZO 3.375/DEX-IS 50 ML IV SCH ×3 (09:28→17:33)
[2022-08-05] MEDS ORDERED: INSULIN NPH/REGULAR 70-30, 100 UNITS/ML, 3 ML VIAL ONE (09:44)
[2022-08-05] MEDS: INSULIN NPH/REGULAR 70-30, 100 UNITS/ML, 3 ML VIAL SUBCUT SCH ×2 (09:44→20:50)
--- NOTE | 2022-08-05 10:28 | NUR ---
[facility] Admitted to m/s unit. Will go to room 119 a. Belongings list completed. Complete and up to date summary report printed. SBAR report to be given at bedside with opportunity for questions.
--- NOTE | 2022-08-05 10:29 | NUR ---
CONSULTATION PAGED REASON FOR CONSULTATION SEPSIS WAS CONSULT CALED?Y PERSON WHO WAS NOTIFIED:ARYAN CONSULTING PHYSICIAN:RIYA GALICIA BRAKE COUPLER [place] SPECIALTY:INFECTIOUS DISEASE BRAKE COUPLER [place] PHONE NUMBER:[phone] RE[facility]ING PH[facility]IC[facility]
[2022-08-05 10:30] VITALS: BP_SYST 155
[2022-08-05 10:39] VITALS: BP_SYST 155
[2022-08-05] MEDS: GABAPENTIN 300 MG CAPSULE PO SCH ×3 (11:11→20:42)
[2022-08-05] MEDS: TAMSULOSIN HCL 0.4 MG CAP PO SCH (11:11)
[2022-08-05] MEDS: GEMFIBROZIL 600 MG TABLET (LOPID) PO SCH ×2 (11:11→20:42)
[2022-08-05] MEDS: FINASTERIDE 5 MG TABLET (PROSCAR) PO SCH (11:12)
[2022-08-05] MEDS: ASPIRIN 81 MG TABLET(ECOTRIN) PO SCH (11:12)
[2022-08-05] MEDS: LOSARTAN POTASSIUM 50 MG TABLET (COZAAR) PO SCH (11:14)
[2022-08-05] MEDS: amLODIPine BESYLATE 10 MG TABLET PO SCH (11:14)
[2022-08-05] MEDS: HEPARIN SODIUM,PORCINE 5,000 UNITS/ML VIAL SUBCUT SCH ×2 (11:17→20:44)
[2022-08-05] MEDS: MORPHINE 2 MG/ML INJ. SYRINGE IVP PRN ×2 (11:24→16:20)
[2022-08-05 12:00] VITALS: BP_SYST 129
[2022-08-05] MEDS: INSULIN REGULAR, HUMAN 100 UNITS/ML, 3 ML VIAL (humuLIN R) SUBCUT PRN ×3 (12:16→20:50)
[2022-08-05 13:52] VITALS: BP_SYST 129
[2022-08-05] MEDS: MONTELUKAST 10 MG TABLET PO SCH (17:32)
[2022-08-05 18:32] VITALS: BP_SYST 133
--- NOTE | 2022-08-05 19:30 | NUR ---
OPENING NOTE Pt is awake lying in bed. No s/s of respiratory distress. Breathing even and unlabored on 2L nasal cannula. Pt is a/o x4, weak and lethargic, unable to ambulate. Fall and safety precautions in place with bed in lowest position, bed alarm on, and call light within reach
[2022-08-05 20:00] VITALS: BP_SYST 100
--- NOTE | 2022-08-06 00:15 | NUR ---
ROUNDS Pt is lying in bed, eyes closed. Breathing even and unlabored. Fall and safety checks in place
[2022-08-06] MEDS: PIPERACILLIN/TAZO 3.375/DEX-IS 50 ML IV SCH ×5 (00:26→23:14)
[2022-08-06] MEDS: NACL 0.9% 1,000 ML IV SCH ×3 (00:27→20:57)
[2022-08-06 00:44] VITALS: BP_SYST 109
[2022-08-06] MEDS: INSULIN REGULAR, HUMAN 100 UNITS/ML, 3 ML VIAL (humuLIN R) SUBCUT PRN ×3 (06:26→17:53)
--- NOTE | 2022-08-06 06:51 | NUR ---
CLOSING NOTE Pt is awake lying in bed. No s/s of respiratory distress. Breathing even and unlabored on 3L nasal cannula. IV site intact and patent with fluids running at ordered rate. All needs met throughout shift. Fall and safety precautions in place with bed in lowest position, bed alarm on, and call light within reach
[2022-08-06 07:06] LABS: BASOPHILS # (AUTO) 0.1 K/uL (0.0-0.2); BASOPHILS % (AUTO) 0.6 % (0.0-2.0); EOSINOPHILS # (AUTO) 0.1 K/uL (0.0-0.4); EOSINOPHILS % (AUTO) 0.9 % (0.0-4.0); HEMATOCRIT 36.3 % (36-54); HEMOGLOBIN 11.9 g/dL (14.0-18.0); LYMPHOCYTES # (AUTO) 1.7 K/uL (1.0-5.5); LYMPHOCYTES % (AUTO) 12.6 % (20.5-51.5); MEAN CORPUSCULAR HEMOGLOBIN 27 pg (27-31); MEAN CORPUSCULAR HGB CONC 33 % (32-36); MEAN CORPUSCULAR VOLUME 83 fL (79.0-98.0); MONOCYTES # (AUTO) 1.6 K/uL (0.0-1.0); MONOCYTES % (AUTO) 11.8 % (1.7-9.3); NEUTROPHILS # (AUTO) 10.2 K/uL (1.8-7.7); PLATELET COUNT (AUTO) 149 K/uL (130-430); RED BLOOD CELL COUNT(AUTO) 4.35 MIL/uL (4.2-6.2); RED CELL DISTRIBUTION WIDTH 14.2 % (9.0-15.0); WHITE BLOOD COUNT (AUTO) 13.7 K/uL (4.8-10.8)
[2022-08-06 07:38] LABS: CALCIUM 8.2 mg/dL (8.4-11.0); CREATININE 1.98 mg/dL (0.55-1.30)
--- NOTE | 2022-08-06 07:55 | NUR ---
Patient received awake and alert, able to communicate needs. Patient is med surg. No edema noted. Patient received on 3L nasal canula, tolerating well. Extension tubing provided for NC. Patient is continent gi/gu. Using urinal at bedside. Patient has generalized weakness, able to stand with moderate to minimal assist. Patient transferred to chair this AM with staff. Patient has IV to right ac patent and flushing well.
[2022-08-06 08:00] VITALS: BP_SYST 122
[2022-08-06] MEDS: HEPARIN SODIUM,PORCINE 5,000 UNITS/ML VIAL SUBCUT SCH ×2 (08:41→20:54)
[2022-08-06] MEDS: amLODIPine BESYLATE 10 MG TABLET PO SCH (08:42)
[2022-08-06] MEDS: TAMSULOSIN HCL 0.4 MG CAP PO SCH (08:42)
[2022-08-06] MEDS: LOSARTAN POTASSIUM 50 MG TABLET (COZAAR) PO SCH (08:42)
[2022-08-06] MEDS: FINASTERIDE 5 MG TABLET (PROSCAR) PO SCH (08:42)
[2022-08-06] MEDS: GEMFIBROZIL 600 MG TABLET (LOPID) PO SCH ×2 (08:43→20:50)
[2022-08-06] MEDS: GABAPENTIN 300 MG CAPSULE PO SCH ×3 (08:43→20:50)
[2022-08-06] MEDS: ASPIRIN 81 MG TABLET(ECOTRIN) PO SCH (08:43)
[2022-08-06] MEDS: INSULIN NPH/REGULAR 70-30, 100 UNITS/ML, 3 ML VIAL SUBCUT SCH ×2 (08:46→21:09)
[2022-08-06] MEDS: MORPHINE 2 MG/ML INJ. SYRINGE IVP PRN ×2 (10:06→20:52)
--- NOTE | 2022-08-06 10:43 | NUR ---
Dietitian Recommendations * Continue consistent CHO diet * Recommend Glucerna once/day (vanilla flavor) * Consider wound supplements: MVI, 250 mg VIT C, Mikey BID (fruit punch) * Consider 220mg ZnSO4 x 14 days for wound healing GS, MPH, RD Please refer to RD Assessment for further details Addendum: 08/06/22 at [address] Amended: Links added.
[2022-08-06 11:12] VITALS: BP_SYST 123
[2022-08-06 15:25] LABS: NEUTROPHILS % (AUTO) 74.1 % (40.0-70.0)
--- NOTE | 2022-08-06 15:42 | NUR ---
Patient complained of abdominal pain initially now complaining of chest pain, Dr Zafar hamm. Addendum: 08/06/22 at 1614 by [facility], VALORIE EUGENE Correction, patient states he has epigastric pain. Reports feeling better now with pain medication. Patient returned to bed. Bed in [facility] setting.
[2022-08-06 15:50] VITALS: BP_SYST 106
--- NOTE | 2022-08-06 16:35 | NUR ---
Patient reports feeling that discomfort is more of feeling " like I have to go to the bathroom" Patient placed on bed spivey for BM. Patient requested to go to bathroom but appears unsteady when attempting to move to sitting position.
[2022-08-06] MEDS: MONTELUKAST 10 MG TABLET PO SCH (17:49)
--- NOTE | 2022-08-06 18:11 | NUR ---
Nutrition Note: Ordered: Glucerna BID, Mikey BID (supplements yield 620 kcals and 25g PRO) Heena Lin MPH, RDN
--- NOTE | 2022-08-06 18:16 | NUR ---
IV infiltrated, new iv placed on left fa 22g.
--- NOTE | 2022-08-06 19:30 | NUR ---
OPENING NOTE Pt is awake lying in bed. No s/s of respiratory distress. Breathing even and unlabored on 3L nasal cannula saturating 97%. Able to make needs known. Fall and safety precautions in place with bed in lowest position, bed alarm on, and call light within reach
[2022-08-06 20:00] VITALS: BP_SYST 139
[2022-08-06] MEDS: INSULIN GLARGINE 100 UNITS/ML, 10 ML VIAL SUBCUT SCH (21:10)
[2022-08-07 00:11] VITALS: BP_SYST 131
--- NOTE | 2022-08-07 00:15 | NUR ---
ROUNDS Pt is awake lying in bed. Breathing even and unlabored. Fall and safety checks in place
[2022-08-07] MEDS: MORPHINE 2 MG/ML INJ. SYRINGE IVP PRN ×3 (01:10→12:03)
[2022-08-07] MEDS: NACL 0.9% 1,000 ML IV SCH ×2 (06:02→13:52)
[2022-08-07] MEDS: PIPERACILLIN/TAZO 3.375/DEX-IS 50 ML IV SCH (06:02)
[2022-08-07] MEDS: INSULIN REGULAR, HUMAN 100 UNITS/ML, 3 ML VIAL (humuLIN R) SUBCUT PRN (06:13)
[2022-08-07 07:06] LABS: BASOPHILS % (AUTO) 0.4 % (0.0-2.0); EOSINOPHILS # (AUTO) 0.3 K/uL (0.0-0.4); EOSINOPHILS % (AUTO) 3.2 % (0.0-4.0); HEMATOCRIT 34.8 % (36-54); HEMOGLOBIN 11.6 g/dL (14.0-18.0); LYMPHOCYTES % (AUTO) 10.3 % (20.5-51.5); MEAN CORPUSCULAR HEMOGLOBIN 28 pg (27-31); MEAN CORPUSCULAR HGB CONC 33 % (32-36); MEAN CORPUSCULAR VOLUME 83 fL (79.0-98.0); MONOCYTES % (AUTO) 10.7 % (1.7-9.3); NEUTROPHILS # (AUTO) 7.4 K/uL (1.8-7.7); NEUTROPHILS % (AUTO) 75.4 % (40.0-70.0); PLATELET COUNT (AUTO) 146 K/uL (130-430); RED CELL DISTRIBUTION WIDTH 14.1 % (9.0-15.0); WHITE BLOOD COUNT (AUTO) 9.8 K/uL (4.8-10.8)
--- NOTE | 2022-08-07 07:25 | NUR ---
OPENING NOTE Received report from VALORIE Castrejon. Upon entering room, patient is awake, alert, and oriented laying in bed. He reports pain at this time. IV site intact. Call light within reach. All safety precautions observed. Will continue to monitor patient's pain.
[2022-08-07 07:41] LABS: CALCIUM 8.3 mg/dL (8.4-11.0); CREATININE 1.35 mg/dL (0.55-1.30)
[2022-08-07 08:15] VITALS: BP_SYST 123
[2022-08-07] MEDS ORDERED: SULF1TAB47 PO (08:59)
--- NOTE | 2022-08-07 09:36 | NUR ---
CONSULT NEPHROLOGY HYPONATREMIA DR CERRATO,ABID [phone] DR HOUSE ELECTRIC WIRER [facility]
--- NOTE | 2022-08-07 10:00 | NUR ---
SPOKE WITH CONSULT Spoke with MD Stas. Received orders.
[2022-08-07] MEDS ORDERED: SODIUM CHLORIDE 500 MG TABLET PO ONE (10:15)
[2022-08-07] MEDS: TAMSULOSIN HCL 0.4 MG CAP PO SCH (10:39)
[2022-08-07] MEDS: ASPIRIN 81 MG TABLET(ECOTRIN) PO SCH (10:39)
[2022-08-07] MEDS: GEMFIBROZIL 600 MG TABLET (LOPID) PO SCH ×2 (10:39→21:34)
[2022-08-07] MEDS: FINASTERIDE 5 MG TABLET (PROSCAR) PO SCH (10:39)
[2022-08-07] MEDS: GABAPENTIN 300 MG CAPSULE PO SCH ×3 (10:39→21:34)
[2022-08-07] MEDS: amLODIPine BESYLATE 10 MG TABLET PO SCH (10:40)
[2022-08-07] MEDS: LOSARTAN POTASSIUM 50 MG TABLET (COZAAR) PO SCH (10:41)
[2022-08-07] MEDS: HEPARIN SODIUM,PORCINE 5,000 UNITS/ML VIAL SUBCUT SCH ×2 (10:57→21:35)
[2022-08-07] MEDS: INSULIN NPH/REGULAR 70-30, 100 UNITS/ML, 3 ML VIAL SUBCUT SCH ×2 (11:59→21:36)
[2022-08-07] MEDS: guaiFENesin/DEXTROMETHORPHAN 10 ML UDC PO PRN ×2 (12:04→16:37)
--- NOTE | 2022-08-07 13:00 | NUR ---
PATIENT REFUSED PT TREATMENT TODAY. RN ALREADY GAVE PAIN MEDICATION AN HOUR PRIOR TO PT ATTEMPT, BUT PATIENT STATES HE IS STILL IN A LOT OF PAIN. PATIENT REQUEST THERAPIST TO RETURN FOR PT IN THE AM.
[2022-08-07] MEDS: cefTRIAXone 1 GM in D5W 50 ML IV SCH (13:52)
--- NOTE | 2022-08-07 14:15 | NUR ---
PT REFUSING CRAMER Patient states he does not want a Cramer catheter due to pain. He was educated on the reason the Cramer is needed.
[2022-08-07] MEDS ORDERED: BISACODYL 10 MG/SUPPOSITORY RC PRN (14:30)
[2022-08-07] MEDS ORDERED: POLYETHYLENE GLYCOL 3350, 17 GM/ POWD.PACK PO ONE (15:00)
[2022-08-07 15:55] LABS: CALCIUM 8.5 mg/dL (8.4-11.0); CREATININE 1.25 mg/dL (0.55-1.30)
[2022-08-07 16:15] VITALS: BP_SYST 143
--- NOTE | 2022-08-07 17:02 | NUR ---
PT REFUSING CRAMER Patient continuing to refuse Cramer at this time despite education given to patient.
[2022-08-07] MEDS: MONTELUKAST 10 MG TABLET PO SCH (17:25)
--- NOTE | 2022-08-07 18:41 | NUR ---
IV INSERTION ATTEMPT IV site attempted 3 times. Will endorse to shift mechanic.
--- NOTE | 2022-08-07 18:42 | NUR ---
CLOSING NOTE Patient sleeping in bed soundly at this time. He denies any pain or discomfort. No IV at this time. Dinner at the bedside. Call light within reach. All safety precautions observed.
[2022-08-07 19:34] LABS: BARBITURATE, URINE NEGATIVE (NEG <=200); BENZODIAZEPINE, URINE NEGATIVE (NEG <=150); CANNABINOID, URINE NEGATIVE (NEG <=50); COCAINE, URINE NEGATIVE (NEG <=150); METHAMPHETAMINES SCREEN,URINE NEGATIVE (NEG <=500); OPIATE, URINE POSITIVE (NEG <=100); PHENCYCLIDINE SCREEN,URINE NEGATIVE (NEG <=25); UR TRICYCLIC ANTIDEPRESSANTS POSITIVE (NEG <=300); URINE AMPHETAMINE NEGATIVE (NEG <=500); URINE METHADONE NEGATIVE (NEG <=200); URINE OXYCODONE SCREEN NEGATIVE (NEG <=100); URINE PROPOXYPHENE SCREEN NEGATIVE (NEG <=300)
[2022-08-07 20:00] VITALS: BP_SYST 148
--- NOTE | 2022-08-07 20:00 | NUR ---
pt is awake and oriented x4. belly still distended. he is in nasal canula 4 liter. pt satng
--- NOTE | 2022-08-07 20:30 | NUR ---
pt desired some juice, I have to remind him that he is diabetic. pt understood. he said he doesn't wish to have guthrie at this moment.
[2022-08-07] MEDS: INSULIN GLARGINE 100 UNITS/ML, 10 ML VIAL SUBCUT SCH (21:38)
[2022-08-07 22:01] LABS: CHLORIDE,URINE RANDOM 15 mmol/L (55-125); POTASSIUM,URINE RANDOM 19 mmol/L (12-75); URINE SODIUM, RANDOM 14 mmol/L (40-220)
[2022-08-08 00:24] VITALS: BP_SYST 125
--- NOTE | 2022-08-08 05:41 | NUR ---
PT DID NOT URINATE ON 12 NOC SHIFT VALORIE MAGANA HAS BEEN NOTIFIED AND IS AWARE
[2022-08-08] MEDS: NACL 0.9% 1,000 ML IV SCH (07:02)
--- NOTE | 2022-08-08 07:04 | NUR ---
pt doesnt need insulin coverage since blood sugar 153
[2022-08-08 07:26] LABS: BASOPHILS % (AUTO) 0.3 % (0.0-2.0); EOSINOPHILS # (AUTO) 0.2 K/uL (0.0-0.4); EOSINOPHILS % (AUTO) 2.3 % (0.0-4.0); HEMATOCRIT 34.2 % (36-54); HEMOGLOBIN 11.4 g/dL (14.0-18.0); LYMPHOCYTES # (AUTO) 0.6 K/uL (1.0-5.5); LYMPHOCYTES % (AUTO) 7.4 % (20.5-51.5); MEAN CORPUSCULAR HEMOGLOBIN 28 pg (27-31); MEAN CORPUSCULAR HGB CONC 33 % (32-36); MEAN CORPUSCULAR VOLUME 83 fL (79.0-98.0); MONOCYTES # (AUTO) 0.8 K/uL (0.0-1.0); MONOCYTES % (AUTO) 9.3 % (1.7-9.3); NEUTROPHILS # (AUTO) 6.9 K/uL (1.8-7.7); NEUTROPHILS % (AUTO) 80.7 % (40.0-70.0); PLATELET COUNT (AUTO) 185 K/uL (130-430); RED BLOOD CELL COUNT(AUTO) 4.12 MIL/uL (4.2-6.2); WHITE BLOOD COUNT (AUTO) 8.5 K/uL (4.8-10.8)
[2022-08-08] MEDS: guaiFENesin/DEXTROMETHORPHAN 10 ML UDC PO PRN (07:35)
[2022-08-08 07:44] LABS: CALCIUM 8.3 mg/dL (8.4-11.0); CREATININE 0.99 mg/dL (0.55-1.30)
[2022-08-08 08:00] VITALS: BP_SYST 147
[2022-08-08] MEDS: ASPIRIN 81 MG TABLET(ECOTRIN) PO SCH (09:07)
[2022-08-08] MEDS: SODIUM CHLORIDE 500 MG TABLET PO SCH (09:07)
[2022-08-08] MEDS: POLYETHYLENE GLYCOL 3350, 17 GM/ POWD.PACK PO SCH (09:07)
[2022-08-08] MEDS: TAMSULOSIN HCL 0.4 MG CAP PO SCH (09:07)
[2022-08-08] MEDS: amLODIPine BESYLATE 10 MG TABLET PO SCH (09:08)
[2022-08-08] MEDS: GEMFIBROZIL 600 MG TABLET (LOPID) PO SCH ×2 (09:10→22:56)
[2022-08-08] MEDS: INSULIN NPH/REGULAR 70-30, 100 UNITS/ML, 3 ML VIAL SUBCUT SCH ×2 (09:10→23:10)
[2022-08-08] MEDS: GABAPENTIN 300 MG CAPSULE PO SCH ×3 (09:10→22:56)
[2022-08-08] MEDS: LOSARTAN POTASSIUM 50 MG TABLET (COZAAR) PO SCH (09:16)
[2022-08-08] MEDS: HEPARIN SODIUM,PORCINE 5,000 UNITS/ML VIAL SUBCUT SCH ×2 (09:16→23:08)
[2022-08-08] MEDS: FINASTERIDE 5 MG TABLET (PROSCAR) PO SCH (09:18)
[2022-08-08] MEDS: INSULIN REGULAR, HUMAN 100 UNITS/ML, 3 ML VIAL (humuLIN R) SUBCUT PRN ×3 (11:28→23:11)
[2022-08-08 11:54] VITALS: BP_SYST 113
[2022-08-08] MEDS: MORPHINE 2 MG/ML INJ. SYRINGE IVP PRN ×2 (12:14→23:16)
[2022-08-08] MEDS: cefTRIAXone 1 GM in D5W 50 ML IV SCH (12:37)
[2022-08-08 12:58] VITALS: BP_SYST 136
--- NOTE | 2022-08-08 16:15 | NUR ---
Discharge Planning: DCP faxed [facility] [phone] [facility], [facility] [phone] DCP to follow up
[2022-08-08] MEDS: MONTELUKAST 10 MG TABLET PO SCH (17:02)
[2022-08-08 17:25] VITALS: BP_SYST 136
--- NOTE | 2022-08-08 18:30 | NUR ---
ATTEMPTED SEVERAL TIMES THROUGHOUT THE DAY TO CONTACT PATIENT'S SISTER KYUNG AT [phone] TO DISCHARGE PATIENT HOME. THE ADDRESS ON THE FACE SHEET IS INCORRECT AND PATIENT STATES HE DOES NO KNOW HIS PHYSICAL ADDRESS. PATIENT KNOWS ONLY [address]. CHARGE NURSE AND BRUSH MAKER MACHINE AWARE AND ATTEMPTED TO CONTACT KYUNG WELL. MESSAGES LEFT FOR KYUNG TO CALL US BACK AND GIVE US THE ADDRESS SO WE CAN ORDER A UBER FOR THE PATIENT, NO RESPONSE FROM THE SISTER. UNABLE TO DISCHARGE PATIENT HOME DUE TO NO CONTACT WITH FAMILY AND NOT HAVING THE PATIENT'S CORRECT ADDRESS. WILL ATTEMPT TO DISCHARGE PATIENT AGAIN TOMORROW. Michelle LONDONO RN.
[2022-08-08 19:50] VITALS: BP_SYST 142
--- NOTE | 2022-08-08 19:50 | NUR ---
INITIAL NOTE AT INITIAL ASSESSMENT, PATIENT IS RESTING IN BED, STABLE, NO SIGNS OF RESPIRATORY DISTRESS. PLAN OF CARE FOR THE EVENING IS COMMUNICATED WITH THE PATIENT. PATIENT VERBALIZES NO PAIN. PATIENT IS ON 4L NC AT THIS TIME WITH OXYGEN SATURATION 94%. PATIENT DEMONSTRATES CORRECT USAGE OF CALL LIGHT AT THIS TIME. BED IS LOCKED, ALARMED, AND AT THE LOWEST LEVEL. FALL, SAFETY, RESPIRATORY, AND ASPIRATION PRECAUTIONS WILL BE TAKEN THROUGHOUT THE SHIFT.
--- NOTE | 2022-08-08 22:30 | NUR ---
HYGIENE CARE HYGIENE CARE IS PROVIDED. FRESH LINENS PROVIDED. PATIENT TOLERATED WELL. HE IS REPOSITIONED FOR COMFORT.
[2022-08-08] MEDS: INSULIN GLARGINE 100 UNITS/ML, 10 ML VIAL SUBCUT SCH (23:10)
[2022-08-09] VITALS: BP_SYST 136
--- NOTE | 2022-08-09 02:45 | NUR ---
COMMUNICATION W/ DR. HARTMAN / STRAIGHT CATHETER PATIENT HAD A VERY LARGE BOWEL MOVEMENT, HYGIENE CARE PROVIDED AT THIS TIME. PATIENT ALSO VERBALIZED THAT HE HAS NOT PEED IN OVER TWO NIGHTS. BLADDER SCAN PERFORMED SHOWED >999 ML URINE RETENTION. Zoya CRESPO MD GAVE ORDERS FOR STRAIGHT CATH AT THIS TIME. STRAIGHT CATH PERFORMED AT THIS TIME, PATIENT TOLERATED WELL. TOTAL OF 1500ML URINE OUTPUT COLLECTED.
--- NOTE | 2022-08-09 05:15 | NUR ---
HYGIENE CARE HYGIENE CARE IS PROVIDED. FRESH LINENS PROVIDED. PATIENT TOLERATED WELL. SHE IS REPOSITIONED FOR COMFORT.
[2022-08-09] MEDS: NACL 0.9% 1,000 ML IV SCH (06:04)
[2022-08-09] MEDS: INSULIN REGULAR, HUMAN 100 UNITS/ML, 3 ML VIAL (humuLIN R) SUBCUT PRN ×3 (06:05→18:01)
--- NOTE | 2022-08-09 07:40 | NUR ---
CLOSING NOTE PATIENT SLEPT WELL THROUGHOUT THE NIGHT. CALL LIGHT PLACED WITHIN REACH. BED IS LOCKED, AND AT THE LOWEST LEVEL. FALL, SAFETY, RESPIRATORY, AND ASPIRATION PRECAUTIONS HAVE BEEN IN PLACE THROUGHOUT THE SHIFT. WILL CONTINUE TO MONITOR UNTIL REPORT IS GIVEN AT BEDSIDE TO AM NURSE.
--- NOTE | 2022-08-09 08:00 | NUR ---
Initial Notes Patient is AOx4. No ss of distress noted. Breathing is even and nonlabored, on room air. Vital signs obtained, as documented. Patient denies pain, denies SOB.IV patent. IVF running. Patient is eating breakfast. Bed locked, alarm on, and at lowest position. Call light within reach.
[2022-08-09] MEDS: POLYETHYLENE GLYCOL 3350, 17 GM/ POWD.PACK PO SCH (09:00)
[2022-08-09 09:48] LABS: BASOPHILS # (AUTO) 0.1 K/uL (0.0-0.2); BASOPHILS % (AUTO) 0.6 % (0.0-2.0); EOSINOPHILS # (AUTO) 0.2 K/uL (0.0-0.4); EOSINOPHILS % (AUTO) 1.5 % (0.0-4.0); HEMATOCRIT 34.8 % (36-54); HEMOGLOBIN 11.3 g/dL (14.0-18.0); LYMPHOCYTES # (AUTO) 0.9 K/uL (1.0-5.5); MEAN CORPUSCULAR HEMOGLOBIN 28 pg (27-31); MEAN CORPUSCULAR HGB CONC 33 % (32-36); MEAN CORPUSCULAR VOLUME 84 fL (79.0-98.0); MONOCYTES # (AUTO) 1.1 K/uL (0.0-1.0); MONOCYTES % (AUTO) 10.8 % (1.7-9.3); NEUTROPHILS # (AUTO) 8.1 K/uL (1.8-7.7); NEUTROPHILS % (AUTO) 78.1 % (40.0-70.0); PLATELET COUNT (AUTO) 262 K/uL (130-430); RED BLOOD CELL COUNT(AUTO) 4.13 MIL/uL (4.2-6.2); WHITE BLOOD COUNT (AUTO) 10.3 K/uL (4.8-10.8)
[2022-08-09 10:06] LABS: CALCIUM 8.6 mg/dL (8.4-11.0); CREATININE 1.04 mg/dL (0.55-1.30)
[2022-08-09] MEDS: SODIUM CHLORIDE 500 MG TABLET PO SCH (10:09)
[2022-08-09] MEDS: HEPARIN SODIUM,PORCINE 5,000 UNITS/ML VIAL SUBCUT SCH (10:12)
[2022-08-09] MEDS: INSULIN NPH/REGULAR 70-30, 100 UNITS/ML, 3 ML VIAL SUBCUT SCH (10:13)
[2022-08-09] MEDS: ASPIRIN 81 MG TABLET(ECOTRIN) PO SCH (10:15)
[2022-08-09] MEDS: FINASTERIDE 5 MG TABLET (PROSCAR) PO SCH (10:15)
[2022-08-09] MEDS: GEMFIBROZIL 600 MG TABLET (LOPID) PO SCH (10:15)
[2022-08-09] MEDS: LOSARTAN POTASSIUM 50 MG TABLET (COZAAR) PO SCH (10:16)
[2022-08-09] MEDS: GABAPENTIN 300 MG CAPSULE PO SCH ×2 (10:17→14:22)
[2022-08-09] MEDS: amLODIPine BESYLATE 10 MG TABLET PO SCH (10:17)
[2022-08-09] MEDS: TAMSULOSIN HCL 0.4 MG CAP PO SCH (10:18)
[2022-08-09 11:36] VITALS: BP_SYST 145
--- NOTE | 2022-08-09 12:03 | NUR ---
DOOR BUILDER ACSW Nkechi responded to a request for Social Service support from [employer] Neil to address discharge concerns. ACSW Nkechi consulted with staff who shared unable to provide Uber for patient yesterday due to not having accurate home address and unable to reach patient's sister Trish Crowell ACSW Nkechi met with patient at bedside. ACSW completed introductions, provided business card, and reason for referral and patient was open to contact Patient shared he had been unable to contact sister who he resides with and does not know exact address. ACSW inquired into additional contacts for patient, but he denied knowing other numbers for support. ACSW left requesting call back. ACSW was later contacted by patient who stated he heard from sister and she will pick him up at 6pm. ACSW called sister Trish from private number, she answered and would not provide home address for Uber transport and stated she will be here at 6pm to hot die picker patient ACSw provided update to Med Surg staff and House Sup. Garbage Pick Up Man will continue to be available as needed
[2022-08-09 13:56] LABS: BASOPHILS % (AUTO) 0.5 % (0.0-2.0); EOSINOPHILS # (AUTO) 0.2 K/uL (0.0-0.4); EOSINOPHILS % (AUTO) 1.8 % (0.0-4.0); HEMATOCRIT 33.8 % (36-54); HEMOGLOBIN 11.3 g/dL (14.0-18.0); LYMPHOCYTES % (AUTO) 10.8 % (20.5-51.5); MEAN CORPUSCULAR HEMOGLOBIN 28 pg (27-31); MEAN CORPUSCULAR HGB CONC 33 % (32-36); MEAN CORPUSCULAR VOLUME 83 fL (79.0-98.0); MONOCYTES % (AUTO) 11.6 % (1.7-9.3); NEUTROPHILS # (AUTO) 6.7 K/uL (1.8-7.7); NEUTROPHILS % (AUTO) 75.3 % (40.0-70.0); PLATELET COUNT (AUTO) 229 K/uL (130-430); RED BLOOD CELL COUNT(AUTO) 4.07 MIL/uL (4.2-6.2); RED CELL DISTRIBUTION WIDTH 14.1 % (9.0-15.0); WHITE BLOOD COUNT (AUTO) 8.9 K/uL (4.8-10.8)
[2022-08-09] MEDS ORDERED: AMOXICILLIN 500 MG CAPSULE PO SCH (14:00)
--- NOTE | 2022-08-09 16:09 | NUR ---
Discharge Planning: DCP followed up with [facility] [phone] [facility] FWW will be delivered between 7:00pm and 10:00pm today. DCP made CM aware.
[2022-08-09 16:31] VITALS: BP_SYST 127
[2022-08-09 17:10] VITALS: BP_SYST 127
[2022-08-09] MEDS: MONTELUKAST 10 MG TABLET PO SCH (18:04)
--- NOTE | 2022-08-09 19:00 | NUR ---
D/C Patient Patient given medication reconciliation form and D/C instructions. Exit Care provided. Patient verbalized understanding. MD discussed with patient the results and treatment provided. Ambulatory with FWW at bedside, discharge to home. Patient in stable condition, ID band removed. IV catheter removed, intact and dressing applied, no active bleeding. Rx of given. Patient educated on pain management. All belongings sent with patient.
--- NOTE | 2022-08-12 07:51 | NUR ---
PHYSICAL THERAPY CO-SIGN The Physical Therapy Progress Notes documented by Homicide Detective have been reviewed. Reviewed/Co-Signed by: Didier Ceja Documentation Done by: GUEVARA VARMA PTA Addendum: 08/12/22 at 0751 by Didier Ceja PT Amended: Links added.
== END 2022-08-09 18:50 | disposition home or self-care (01) | DRG 720 ==
LOC: SED 09:43 → SMU 13:30
PROVIDERS: ADMIT General Practice; ATTEND General Practice
DX: A41.9 Sepsis, unspecified organism (principal); N17.0 Acute kidney failure with tubular necrosis; E44.1 Mild protein-calorie malnutrition; N39.0 Urinary tract infection, site not specified; E87.1 Hypo-osmolality and hyponatremia; E11.65 Type 2 diabetes mellitus with hyperglycemia; E11.40 Type 2 diabetes mellitus with diabetic neuropathy, unspecified; B96.20 Unspecified Escherichia coli [E. coli] as the cause of diseases classified elsewhere; E78.5 Hyperlipidemia, unspecified; I10 Essential (primary) hypertension; N40.0 Benign prostatic hyperplasia without lower urinary tract symptoms; E66.9 Obesity, unspecified; G47.33 Obstructive sleep apnea (adult) (pediatric); Z20.822 Contact with and (suspected) exposure to COVID-19; Z91.14 Patient's other noncompliance with medication regimen; Z91.199 Patient's noncompliance with other medical treatment and regimen due to unspecified reason; Z87.440 Personal history of urinary (tract) infections; Z68.41 Body mass index [BMI] 40.0-44.9, adult
CPT/HCPCS: 36415; 70450-TC; 71045; 72131; 76376; 76770; 80048; 80053; 80307; 81000; 82435; 82533; 82962; 83036; 83605; 83735; 83880; 83930; 83935; 84100; 84302; 84443; 84484; 84999; 85025; 87040; 87086; 93005; 97110-GP; 97112-GP; 97116-GP; 97530-GP; 99285; J0696; J1644; J1815; J2270; J2405; J2543; J7030; J7060; J8597

== ENCOUNTER 2022-08-11 10:37 | Emergency (ER) | payer MEDICAID ==
[~2022-08-11] VITALS: Ht 175.3 cm; Wt 99.8 kg
[~2022-08-11 10:37] MED LIST changes: +SULF1TAB47 PO
[2022-08-11 11:18] VITALS: BP_SYST 103
[2022-08-11] MEDS ORDERED: BACITRACIN 1 GM OINT TP ONE (11:30)
[2022-08-11] MEDS ORDERED: CEPH-548 PO (11:41)
[2022-08-11 12:20] VITALS: BP_SYST 103
== END 2022-08-11 12:21 | disposition home or self-care (01) ==
LOC: SED 10:37
DX: L03.116 Cellulitis of left lower limb (principal); M79.662 Pain in left lower leg; E11.9 Type 2 diabetes mellitus without complications; I11.0 Hypertensive heart disease with heart failure; I50.9 Heart failure, unspecified; Z79.4 Long term (current) use of insulin; Z79.899 Other long term (current) drug therapy
CPT/HCPCS: 99283

== ENCOUNTER 2022-08-12 20:05 | Emergency (ER) | payer MEDICAID ==
[~2022-08-12] VITALS: Ht 175.3 cm; Wt 122.5 kg
[~2022-08-12 20:05] MED LIST changes: +CEPH-548 PO
[2022-08-12 20:36] VITALS: BP_SYST 168
--- NOTE | 2022-08-12 20:45 | NUR ---
Patient triaged and placed in waiting room. VS checked and patient appears in no acute distress at this time. Accompanied by self, awaiting available bed, and MD notified of need for MSE.
--- NOTE | 2022-08-12 23:08 | NUR ---
ER at bedside examining patient.
--- NOTE | 2022-08-12 23:18 | NUR ---
Madeleine govea in ED - 08/12/22 at 2319 by [email or web address] RAD at bedside examining pt.
--- NOTE | 2022-08-12 23:19 | NUR ---
RAD at bedside for imaging.
[2022-08-12 23:57] LABS: BASOPHILS % (AUTO) 0.7 % (0.0-2.0); EOSINOPHILS # (AUTO) 0.2 K/uL (0.0-0.4); EOSINOPHILS % (AUTO) 3.8 % (0.0-4.0); HEMATOCRIT 35.1 % (36-54); HEMOGLOBIN 11.5 g/dL (14.0-18.0); LYMPHOCYTES # (AUTO) 1.2 K/uL (1.0-5.5); LYMPHOCYTES % (AUTO) 20.8 % (20.5-51.5); MEAN CORPUSCULAR HEMOGLOBIN 28 pg (27-31); MEAN CORPUSCULAR HGB CONC 33 % (32-36); MEAN CORPUSCULAR VOLUME 84 fL (79.0-98.0); MONOCYTES # (AUTO) 0.5 K/uL (0.0-1.0); NEUTROPHILS # (AUTO) 3.9 K/uL (1.8-7.7); NEUTROPHILS % (AUTO) 66.7 % (40.0-70.0); PLATELET COUNT (AUTO) 352 K/uL (130-430); RED BLOOD CELL COUNT(AUTO) 4.16 MIL/uL (4.2-6.2); RED CELL DISTRIBUTION WIDTH 14.2 % (9.0-15.0); WHITE BLOOD COUNT (AUTO) 5.9 K/uL (4.8-10.8)
[2022-08-13 00:09] LABS: ANION GAP 9 (5-15); CALCIUM 8.8 mg/dL (8.4-11.0); CHLORIDE 106 mmol/L (98-107); CREATININE 0.94 mg/dL (0.55-1.30); GLUCOSE 282 mg/dL (70-99); UREA NITROGEN, BLOOD 20 mg/dL (8-21)
[2022-08-13 00:17] LABS: ALANINE AMINOTRANSFERASE 22 U/L (12-78); ALBUMIN 2.6 g/dL (3.4-4.8); ASPARTATE AMINOTRANSFERASE 21 U/L (10-37); TOTAL BILIRUBIN 0.3 mg/dL (0.0-1.0)
[2022-08-13 00:19] LABS: GFR AFRICAN AMERICAN 106 mL/min (>90)
[2022-08-13 05:45] VITALS: BP_SYST 143
[2022-08-13] MEDS ORDERED: FUROSEMIDE 20 MG TABLET ONE (05:51)
--- NOTE | 2022-08-13 05:58 | NUR ---
Patient given written and verbal discharge instructions and verbalizes understanding. ER MD Corona discussed with patient the results and treatment provided. Patient in stable condition. ID arm band removed. Patient educated on wound tx and to follow up with PMD. Opportunity for questions provided and answered.
[2022-08-13] MEDS ORDERED: FUROSEMIDE 20 MG TABLET PO ONE (06:00)
== END 2022-08-13 05:45 | disposition home or self-care (01) ==
LOC: SED 20:05
DX: Z48.00 Encounter for change or removal of nonsurgical wound dressing (principal); R60.9 Edema, unspecified; R07.9 Chest pain, unspecified; R06.02 Shortness of breath; Z79.899 Other long term (current) drug therapy
CPT/HCPCS: 36415; 71045; 80053; 83880; 84484; 85025; 93005; 99285

== ENCOUNTER 2022-09-26 16:30 | Inpatient (IN) | payer MEDICAID ==
[~2022-09-26] VITALS: Ht 175.3 cm; Wt 132.9 kg
[2022-09-26 16:35] VITALS: BP_SYST 202; BP_SYST 227
[2022-09-26 18:23] LABS: BASOPHILS % (AUTO) 0.3 % (0.0-2.0); EOSINOPHILS % (AUTO) 0.2 % (0.0-4.0); HEMATOCRIT 36.8 % (36-54); HEMOGLOBIN 12.5 g/dL (14.0-18.0); LYMPHOCYTES # (AUTO) 0.9 K/uL (1.0-5.5); LYMPHOCYTES % (AUTO) 7.3 % (20.5-51.5); MEAN CORPUSCULAR HEMOGLOBIN 27 pg (27-31); MEAN CORPUSCULAR HGB CONC 34 % (32-36); MEAN CORPUSCULAR VOLUME 81 fL (79.0-98.0); MONOCYTES # (AUTO) 0.7 K/uL (0.0-1.0); MONOCYTES % (AUTO) 5.7 % (1.7-9.3); NEUTROPHILS # (AUTO) 10.7 K/uL (1.8-7.7); NEUTROPHILS % (AUTO) 86.5 % (40.0-70.0); PLATELET COUNT (AUTO) 204 K/uL (130-430); RED BLOOD CELL COUNT(AUTO) 4.55 MIL/uL (4.2-6.2); RED CELL DISTRIBUTION WIDTH 15.1 % (9.0-15.0); WHITE BLOOD COUNT (AUTO) 12.4 K/uL (4.8-10.8)
[2022-09-26] MEDS ORDERED: IBUPROFEN 600 MG TABLET PO ONE (18:30)
[2022-09-26] MEDS ORDERED: FUROSEMIDE 100 MG/10 ML VIAL IVP ONE (18:30)
[2022-09-26] MEDS ORDERED: MORPHINE 4 MG INJ. 4 MG/ML VIAL IVP ONE (18:30)
[2022-09-26] MEDS ORDERED: ONDANSETRON HCL 4 MG/2 ML VIAL IVP ONE (18:30)
[2022-09-26 18:40] LABS: ANION GAP 8 (5-15); CALCIUM 8.8 mg/dL (8.4-11.0); CHLORIDE 99 mmol/L (98-107); CREATININE 0.98 mg/dL (0.55-1.30); GLUCOSE 217 mg/dL (70-99); UREA NITROGEN, BLOOD 16 mg/dL (8-21)
[2022-09-26 18:41] LABS: GFR AFRICAN AMERICAN 101 mL/min (>90)
[2022-09-26 18:47] LABS: ALANINE AMINOTRANSFERASE 26 U/L (12-78); ALBUMIN 3.2 g/dL (3.4-4.8); ASPARTATE AMINOTRANSFERASE 17 U/L (10-37); TOTAL BILIRUBIN 0.7 mg/dL (0.0-1.0)
[2022-09-26] MEDS ORDERED: VANCOMYCIN HCL 1,000 MG in NS 250 ML IV ONE (19:15)
[2022-09-26 19:20] LABS: BILIRUBIN,URINE NEGATIVE (NEGATIVE); BLOOD, URINE 1+ (NEGATIVE); CLARITY/URINE CLOUDY (CLEAR); COLOR,URINE YELLOW (YELLOW); GLUCOSE,URINE NEGATIVE (NEGATIVE); KETONES,URINE NEGATIVE (NEGATIVE); LEUKOCYTE ESTERASE ,URINE 2+ (NEGATIVE); NITRITE, URINE NEGATIVE (NEGATIVE); PROTEIN URINE 2+ (NEGATIVE); UROBILINOGEN,URINE 0.2 (0.2-1.0)
[2022-09-26] MEDS ORDERED: VANCOMYCIN HCL 1000 MG/VIAL IV ONE (19:40)
[2022-09-26] MEDS ORDERED: PIPERACILLIN/TAZO 3.375 GM in NS 50 ML IV ONE (19:45)
[2022-09-26 19:54] LABS: BACTERIA,URINE MANY /HPF (None Seen); MUCUS,URINE None Seen /LPF (None Seen); WBC,URINE >100 /HPF (0-3)
[2022-09-26] MEDS ORDERED: ONDANSETRON HCL 4 MG/2 ML VIAL IVP PRN (20:00)
[2022-09-26] MEDS ORDERED: MUPIROCIN 2% TOPICAL OINTMENT 22 GM NS PRN (20:00)
[2022-09-26] MEDS ORDERED: DEXTROSE 50% JECT 50 ML DISP.SYRIN IVP PRN (20:00)
[2022-09-26] MEDS ORDERED: ACETAMINOPHEN 325 MG TABLET PO PRN ×2 (20:00→20:15)
[2022-09-26] MEDS ORDERED: MORPHINE 2 MG/ML INJ. SYRINGE IVP PRN ×2 (20:00)
[2022-09-26] MEDS ORDERED: POTASSIUM CHLORIDE 20 MEQ TAB.PRT.SR PO PRN (20:00)
[2022-09-26] MEDS ORDERED: MAGNESIUM SULFATE 50 ML IV PRN (20:00)
[2022-09-26] MEDS ORDERED: DOCUSATE SODIUM 100 MG CAPSULE PO PRN (20:00)
[2022-09-26] MEDS ORDERED: LORazepam 2 MG/ML VIAL IVP PRN (20:00)
[2022-09-26] MEDS ORDERED: PIPERACILLIN/TAZOBACTAM 3.375 GM/VIAL (ZOSYN) IV ONE (20:06)
[2022-09-26] MEDS: INSULIN GLARGINE 100 UNITS/ML, 10 ML VIAL SUBCUT SCH (21:22)
[2022-09-26] MEDS ORDERED: *HEPARIN PER PHARMACY XX ONE (22:30)
[2022-09-26 23:17] VITALS: BP_SYST 124
[2022-09-27] MEDS: PIPERACILLIN/TAZO 3.375/DEX-IS 50 ML IV SCH ×5 (00:46→23:13)
[2022-09-27] MEDS ORDERED: HEPARIN SODIUM,PORCINE 3000 UNITS/0.6 ML BOLUS IVP PRN (01:30)
[2022-09-27] MEDS ORDERED: HEPARIN 25,000 UNITS in 250 ML PREMIX IV PRN (01:30)
[2022-09-27] MEDS ORDERED: HEPARIN SODIUM,PORCINE 2000 UNITS/0.4 ML BOLUS IVP PRN (01:30)
[2022-09-27] MEDS ORDERED: HEPARIN SODIUM,PORCINE 5,000 UNITS/ML VIAL IV ONE (01:30)
[2022-09-27] MEDS: HYDROmorphone 1 MG/ML INJ. CARTRIDGE IVP PRN ×5 (02:08→21:05)
[2022-09-27 03:17] LABS: INR 1.1 (0.80-1.20); PROTHROMBIN TIME 10.8 SECS (9.5-12.5)
[2022-09-27 06:35] LABS: BASOPHILS # (AUTO) 0.1 K/uL (0.0-0.2); BASOPHILS % (AUTO) 0.5 % (0.0-2.0); EOSINOPHILS # (AUTO) 0.2 K/uL (0.0-0.4); EOSINOPHILS % (AUTO) 2.2 % (0.0-4.0); HEMATOCRIT 34.9 % (36-54); HEMOGLOBIN 11.8 g/dL (14.0-18.0); LYMPHOCYTES # (AUTO) 1.7 K/uL (1.0-5.5); LYMPHOCYTES % (AUTO) 16.2 % (20.5-51.5); MEAN CORPUSCULAR HEMOGLOBIN 27 pg (27-31); MEAN CORPUSCULAR HGB CONC 34 % (32-36); MEAN CORPUSCULAR VOLUME 81 fL (79.0-98.0); MONOCYTES # (AUTO) 0.8 K/uL (0.0-1.0); MONOCYTES % (AUTO) 7.9 % (1.7-9.3); NEUTROPHILS # (AUTO) 7.6 K/uL (1.8-7.7); NEUTROPHILS % (AUTO) 73.2 % (40.0-70.0); PLATELET COUNT (AUTO) 182 K/uL (130-430); RED BLOOD CELL COUNT(AUTO) 4.33 MIL/uL (4.2-6.2); RED CELL DISTRIBUTION WIDTH 15.3 % (9.0-15.0); WHITE BLOOD COUNT (AUTO) 10.3 K/uL (4.8-10.8)
[2022-09-27] MEDS: INSULIN LISPRO SLIDING SCALE 100 UNITS/ML, 3 ML VIAL (humaLOG) SUBCUT PRN ×3 (07:04→20:43)
[2022-09-27 07:06] LABS: CALCIUM 8.5 mg/dL (8.4-11.0); CREATININE 1.18 mg/dL (0.55-1.30)
[2022-09-27] MEDS: VANCOMYCIN HCL 1,250 MG in NS 250 ML IV SCH ×2 (08:00→20:29)
[2022-09-27] MEDS ORDERED: FINASTERIDE 5 MG TABLET (PROSCAR) PO SCH (09:00)
[2022-09-27] MEDS ORDERED: amLODIPine BESYLATE 10 MG TABLET PO SCH (09:00)
[2022-09-27] MEDS ORDERED: iohexoL 350 mgI/mL, 100 ML INFUS..BTL IV ONE (09:07)
[2022-09-27] MEDS ORDERED: IOHEXOL 350 mgI/mL, 150 ML INFUS..BTL IV ONE (10:45)
[2022-09-27] MEDS: TAMSULOSIN HCL 0.4 MG CAP PO SCH (12:00)
[2022-09-27] MEDS: FUROSEMIDE 40 MG/4 ML VIAL IVP SCH (12:00)
[2022-09-27] MEDS: GABAPENTIN 300 MG CAPSULE PO SCH ×3 (12:00→20:29)
[2022-09-27] MEDS: GEMFIBROZIL 600 MG TABLET (LOPID) PO SCH ×2 (12:01→20:29)
[2022-09-27] MEDS: LOSARTAN POTASSIUM 50 MG TABLET (COZAAR) PO SCH (12:01)
[2022-09-27] MEDS: ASPIRIN 81 MG TABLET(ECOTRIN) PO SCH (12:02)
[2022-09-27] MEDS: APIXABAN 2.5 MG TABLET PO SCH ×2 (12:05→20:30)
[2022-09-27] MEDS: INSULIN GLARGINE 100 UNITS/ML, 10 ML VIAL SUBCUT SCH ×2 (12:25→20:42)
[2022-09-27] MEDS: FINASTERIDE 5 MG TABLET (PROSCAR) PO SCH (12:56)
[2022-09-27 13:45] VITALS: BP_SYST 215
[2022-09-27 17:32] VITALS: BP_SYST 164
[2022-09-28 01:45] VITALS: BP_SYST 126
[2022-09-28] MEDS: HYDROmorphone 1 MG/ML INJ. CARTRIDGE IVP PRN ×3 (02:11→20:07)
[2022-09-28] MEDS: PIPERACILLIN/TAZO 3.375/DEX-IS 50 ML IV SCH ×4 (05:40→23:48)
[2022-09-28 06:52] LABS: BASOPHILS # (AUTO) 0.1 K/uL (0.0-0.2); BASOPHILS % (AUTO) 0.5 % (0.0-2.0); EOSINOPHILS # (AUTO) 0.1 K/uL (0.0-0.4); EOSINOPHILS % (AUTO) 0.5 % (0.0-4.0); HEMATOCRIT 36.5 % (36-54); HEMOGLOBIN 11.8 g/dL (14.0-18.0); LYMPHOCYTES # (AUTO) 1.6 K/uL (1.0-5.5); LYMPHOCYTES % (AUTO) 11.3 % (20.5-51.5); MEAN CORPUSCULAR HEMOGLOBIN 27 pg (27-31); MEAN CORPUSCULAR HGB CONC 32 % (32-36); MEAN CORPUSCULAR VOLUME 83 fL (79.0-98.0); MONOCYTES # (AUTO) 1.4 K/uL (0.0-1.0); MONOCYTES % (AUTO) 9.9 % (1.7-9.3); NEUTROPHILS # (AUTO) 11.1 K/uL (1.8-7.7); NEUTROPHILS % (AUTO) 77.8 % (40.0-70.0); PLATELET COUNT (AUTO) 210 K/uL (130-430); RED BLOOD CELL COUNT(AUTO) 4.38 MIL/uL (4.2-6.2); RED CELL DISTRIBUTION WIDTH 15.2 % (9.0-15.0); WHITE BLOOD COUNT (AUTO) 14.2 K/uL (4.8-10.8)
[2022-09-28 08:10] VITALS: BP_SYST 133
[2022-09-28] MEDS: VANCOMYCIN HCL 1,250 MG in NS 250 ML IV SCH ×2 (08:37→20:15)
[2022-09-28] MEDS: GABAPENTIN 300 MG CAPSULE PO SCH ×3 (09:00→20:08)
[2022-09-28] MEDS: TAMSULOSIN HCL 0.4 MG CAP PO SCH (09:00)
[2022-09-28] MEDS: INSULIN GLARGINE 100 UNITS/ML, 10 ML VIAL SUBCUT SCH ×2 (09:00→20:23)
[2022-09-28] MEDS: LOSARTAN POTASSIUM 50 MG TABLET (COZAAR) PO SCH (09:00)
[2022-09-28] MEDS: FUROSEMIDE 40 MG/4 ML VIAL IVP SCH (09:00)
[2022-09-28] MEDS: ASPIRIN 81 MG TABLET(ECOTRIN) PO SCH (09:00)
[2022-09-28] MEDS: FINASTERIDE 5 MG TABLET (PROSCAR) PO SCH (09:00)
[2022-09-28] MEDS: BALSAM PERU/CASTOR OIL 56.7 GM OINT...G. TP SCH (09:00)
[2022-09-28] MEDS: GEMFIBROZIL 600 MG TABLET (LOPID) PO SCH ×2 (09:00→20:07)
[2022-09-28] MEDS: APIXABAN 2.5 MG TABLET PO SCH ×2 (09:00→20:09)
[2022-09-28] MEDS: INSULIN LISPRO SLIDING SCALE 100 UNITS/ML, 3 ML VIAL (humaLOG) SUBCUT PRN ×3 (11:49→20:24)
[2022-09-28 12:15] VITALS: BP_SYST 119
[2022-09-28 14:07] LABS: BARBITURATE, URINE NEGATIVE (NEG <=200); BENZODIAZEPINE, URINE NEGATIVE (NEG <=150); CANNABINOID, URINE NEGATIVE (NEG <=50); COCAINE, URINE NEGATIVE (NEG <=150); METHAMPHETAMINES SCREEN,URINE NEGATIVE (NEG <=500); OPIATE, URINE POSITIVE (NEG <=100); PHENCYCLIDINE SCREEN,URINE NEGATIVE (NEG <=25); UR TRICYCLIC ANTIDEPRESSANTS POSITIVE (NEG <=300); URINE AMPHETAMINE NEGATIVE (NEG <=500); URINE METHADONE NEGATIVE (NEG <=200); URINE OXYCODONE SCREEN NEGATIVE (NEG <=100); URINE PROPOXYPHENE SCREEN NEGATIVE (NEG <=300)
[2022-09-28 14:20] LABS: CALCIUM 8.7 mg/dL (8.4-11.0); CREATININE 1.37 mg/dL (0.55-1.30); THYROID STIMULATING HORMONE 1.59 uIu/mL (0.34-4.82); TOTAL BILIRUBIN 0.6 mg/dL (0.0-1.0)
[2022-09-28] MEDS: NACL 0.9% 1,000 ML IV SCH (16:12)
[2022-09-28 16:17] VITALS: BP_SYST 123
[2022-09-28 20:00] VITALS: BP_SYST 146
[2022-09-29 01:18] VITALS: BP_SYST 143
[2022-09-29] MEDS: NACL 0.9% 1,000 ML IV SCH (02:00)
[2022-09-29] MEDS: HYDROmorphone 1 MG/ML INJ. CARTRIDGE IVP PRN ×3 (03:44→20:02)
[2022-09-29] MEDS: PIPERACILLIN/TAZO 3.375/DEX-IS 50 ML IV SCH ×3 (05:34→20:03)
[2022-09-29] MEDS: INSULIN LISPRO SLIDING SCALE 100 UNITS/ML, 3 ML VIAL (humaLOG) SUBCUT PRN ×4 (05:39→20:17)
[2022-09-29 06:42] LABS: BASOPHILS % (AUTO) 0.2 % (0.0-2.0); EOSINOPHILS # (AUTO) 0.3 K/uL (0.0-0.4); EOSINOPHILS % (AUTO) 2.7 % (0.0-4.0); HEMATOCRIT 33.5 % (36-54); HEMOGLOBIN 11.3 g/dL (14.0-18.0); LYMPHOCYTES # (AUTO) 1.1 K/uL (1.0-5.5); LYMPHOCYTES % (AUTO) 10.3 % (20.5-51.5); MEAN CORPUSCULAR HEMOGLOBIN 28 pg (27-31); MEAN CORPUSCULAR HGB CONC 34 % (32-36); MEAN CORPUSCULAR VOLUME 82 fL (79.0-98.0); MONOCYTES # (AUTO) 1.3 K/uL (0.0-1.0); MONOCYTES % (AUTO) 12.1 % (1.7-9.3); NEUTROPHILS % (AUTO) 74.7 % (40.0-70.0); PLATELET COUNT (AUTO) 185 K/uL (130-430); RED CELL DISTRIBUTION WIDTH 15.4 % (9.0-15.0); WHITE BLOOD COUNT (AUTO) 10.6 K/uL (4.8-10.8)
[2022-09-29 07:07] LABS: CALCIUM 8.2 mg/dL (8.4-11.0); CREATININE 1.24 mg/dL (0.55-1.30)
[2022-09-29] MEDS: APIXABAN 2.5 MG TABLET PO SCH ×2 (08:43→20:07)
[2022-09-29] MEDS: INSULIN GLARGINE 100 UNITS/ML, 10 ML VIAL SUBCUT SCH ×2 (08:47→20:16)
[2022-09-29] MEDS: ASPIRIN 81 MG TABLET(ECOTRIN) PO SCH (08:49)
[2022-09-29] MEDS: VANCOMYCIN HCL 1,250 MG in NS 250 ML IV SCH ×2 (08:49→21:17)
[2022-09-29] MEDS: GEMFIBROZIL 600 MG TABLET (LOPID) PO SCH ×2 (08:50→20:05)
[2022-09-29] MEDS: LOSARTAN POTASSIUM 50 MG TABLET (COZAAR) PO SCH (08:50)
[2022-09-29] MEDS: GABAPENTIN 300 MG CAPSULE PO SCH ×3 (08:50→20:05)
[2022-09-29] MEDS: FINASTERIDE 5 MG TABLET (PROSCAR) PO SCH (08:50)
[2022-09-29] MEDS: TAMSULOSIN HCL 0.4 MG CAP PO SCH (08:50)
[2022-09-29] MEDS: FUROSEMIDE 40 MG/4 ML VIAL IVP SCH (08:52)
[2022-09-29] MEDS: BALSAM PERU/CASTOR OIL 56.7 GM OINT...G. TP SCH (08:55)
[2022-09-29] MEDS ORDERED: LOSARTAN POTASSIUM 50 MG TABLET (COZAAR) PO ONE (10:15)
[2022-09-29 11:41] VITALS: BP_SYST 151
[2022-09-29 17:05] VITALS: BP_SYST 150
[2022-09-29 20:00] VITALS: BP_SYST 121
[2022-09-30] MEDS: PIPERACILLIN/TAZO 3.375/DEX-IS 50 ML IV SCH ×4 (00:30→18:00)
[2022-09-30] MEDS: HYDROmorphone 1 MG/ML INJ. CARTRIDGE IVP PRN ×3 (00:41→09:37)
[2022-09-30] MEDS: INSULIN LISPRO SLIDING SCALE 100 UNITS/ML, 3 ML VIAL (humaLOG) SUBCUT PRN ×3 (05:25→16:31)
[2022-09-30 08:20] VITALS: BP_SYST 140
[2022-09-30] MEDS: VANCOMYCIN HCL 1,250 MG in NS 250 ML IV SCH (08:27)
[2022-09-30] MEDS ORDERED: APIX5TAB PO (08:29)
[2022-09-30] MEDS ORDERED: AMOX-423 PO (08:29)
[2022-09-30] MEDS ORDERED: LOSARTAN POTASSIUM 50 MG TABLET (COZAAR) PO SCH (09:00)
[2022-09-30] MEDS: GABAPENTIN 300 MG CAPSULE PO SCH ×2 (09:17→16:23)
[2022-09-30] MEDS: GEMFIBROZIL 600 MG TABLET (LOPID) PO SCH (09:19)
[2022-09-30] MEDS: TAMSULOSIN HCL 0.4 MG CAP PO SCH (09:19)
[2022-09-30] MEDS: FINASTERIDE 5 MG TABLET (PROSCAR) PO SCH (09:20)
[2022-09-30] MEDS: ASPIRIN 81 MG TABLET(ECOTRIN) PO SCH (09:20)
[2022-09-30] MEDS: FUROSEMIDE 40 MG/4 ML VIAL IVP SCH (09:21)
[2022-09-30] MEDS: APIXABAN 2.5 MG TABLET PO SCH (09:34)
[2022-09-30 09:44] LABS: BASOPHILS % (AUTO) 0.5 % (0.0-2.0); EOSINOPHILS # (AUTO) 0.5 K/uL (0.0-0.4); EOSINOPHILS % (AUTO) 4.8 % (0.0-4.0); HEMATOCRIT 31.6 % (36-54); HEMOGLOBIN 10.4 g/dL (14.0-18.0); LYMPHOCYTES # (AUTO) 1.5 K/uL (1.0-5.5); LYMPHOCYTES % (AUTO) 15.8 % (20.5-51.5); MEAN CORPUSCULAR HEMOGLOBIN 27 pg (27-31); MEAN CORPUSCULAR HGB CONC 33 % (32-36); MEAN CORPUSCULAR VOLUME 81 fL (79.0-98.0); MONOCYTES # (AUTO) 1.2 K/uL (0.0-1.0); MONOCYTES % (AUTO) 12.6 % (1.7-9.3); NEUTROPHILS # (AUTO) 6.3 K/uL (1.8-7.7); NEUTROPHILS % (AUTO) 66.3 % (40.0-70.0); PLATELET COUNT (AUTO) 192 K/uL (130-430); RED BLOOD CELL COUNT(AUTO) 3.88 MIL/uL (4.2-6.2); RED CELL DISTRIBUTION WIDTH 15.1 % (9.0-15.0); WHITE BLOOD COUNT (AUTO) 9.5 K/uL (4.8-10.8)
[2022-09-30] MEDS: INSULIN GLARGINE 100 UNITS/ML, 10 ML VIAL SUBCUT SCH (09:47)
[2022-09-30] MEDS: BALSAM PERU/CASTOR OIL 56.7 GM OINT...G. TP SCH (09:51)
[2022-09-30 10:05] LABS: CALCIUM 8.1 mg/dL (8.4-11.0); CREATININE 1.16 mg/dL (0.55-1.30)
[2022-09-30 11:10] VITALS: BP_SYST 145
[2022-09-30 13:18] VITALS: BP_SYST 145
[2022-09-30 15:55] VITALS: BP_SYST 163
== END 2022-09-30 19:00 | disposition home or self-care (01) | DRG 720 ==
LOC: SED 16:30 → STU 19:44
PROVIDERS: ADMIT Family Medicine; ATTEND Family Medicine
DX: A41.9 Sepsis, unspecified organism (principal); E44.1 Mild protein-calorie malnutrition; E11.22 Type 2 diabetes mellitus with diabetic chronic kidney disease; I13.0 Hypertensive heart and chronic kidney disease with heart failure and stage 1 through stage 4 chronic kidney disease, or unspecified chronic kidney disease; I50.32 Chronic diastolic (congestive) heart failure; I82.461 Acute embolism and thrombosis of right calf muscular vein; E11.42 Type 2 diabetes mellitus with diabetic polyneuropathy; L97.929 Non-pressure chronic ulcer of unspecified part of left lower leg with unspecified severity; N39.0 Urinary tract infection, site not specified; L03.115 Cellulitis of right lower limb; B96.20 Unspecified Escherichia coli [E. coli] as the cause of diseases classified elsewhere; B95.2 Enterococcus as the cause of diseases classified elsewhere; L03.116 Cellulitis of left lower limb; Z20.822 Contact with and (suspected) exposure to COVID-19; H66.91 Otitis media, unspecified, right ear; N40.0 Benign prostatic hyperplasia without lower urinary tract symptoms; E87.6 Hypokalemia; I87.8 Other specified disorders of veins; N18.2 Chronic kidney disease, stage 2 (mild); Z83.3 Family history of diabetes mellitus; Z79.82 Long term (current) use of aspirin; Z79.4 Long term (current) use of insulin; Z79.899 Other long term (current) drug therapy; Z68.41 Body mass index [BMI] 40.0-44.9, adult
CPT/HCPCS: 36415; 71045; 71275; 73590-TC; 76376; 80048; 80053; 80061; 80202; 80307; 81000; 82962; 83605; 83735; 83880; 84443; 84484; 85025; 85610-TC; 85730-TC; 87040; 87086; 93005; 93970; 96365; 96366; 96368; 96375; 99291; G0378; J1170; J1644; J1815; J1940; J2060; J2270; J2405; J2543; J3370; J7050; Q9967

== ENCOUNTER 2022-11-04 13:18 | Inpatient (IN) | payer MEDICAID ==
[~2022-11-04] VITALS: Ht 175.3 cm; Wt 116.6 kg
[~2022-11-04 13:18] MED LIST changes: +AMOX-423 PO; +APIX5TAB PO; -LOSA100T3 PO; +LOSA100T4 PO
[2022-11-04 13:38] VITALS: BP_SYST 171
[2022-11-04] MEDS ORDERED: ONDANSETRON HCL 4 MG/2 ML VIAL IVP ONE (15:00)
[2022-11-04] MEDS ORDERED: MORPHINE 4 MG INJ. 4 MG/ML VIAL IVP ONE (15:00)
[2022-11-04 15:11] LABS: HEMATOCRIT 39.1 % (36-54); HEMOGLOBIN 12.7 g/dL (14.0-18.0); MEAN CORPUSCULAR HEMOGLOBIN 26 pg (27-31); MEAN CORPUSCULAR HGB CONC 32 % (32-36); MEAN CORPUSCULAR VOLUME 82 fL (79.0-98.0); PLATELET COUNT (AUTO) 196 K/uL (130-430); RED BLOOD CELL COUNT(AUTO) 4.79 MIL/uL (4.2-6.2); RED CELL DISTRIBUTION WIDTH 14.8 % (9.0-15.0); WHITE BLOOD COUNT (AUTO) 28.7 K/uL (4.8-10.8)
[2022-11-04 15:12] LABS: CALCIUM 8.2 mg/dL (8.4-11.0); CREATININE 1.18 mg/dL (0.55-1.30)
[2022-11-04 15:15] LABS: PROTHROMBIN TIME 10.8 SECS (9.5-12.5)
[2022-11-04 15:18] LABS: TOTAL BILIRUBIN 0.9 mg/dL (0.0-1.0)
[2022-11-04 15:34] LABS: BAND % (MANUAL) 15 % (0-6); BASOPHILS % (MANUAL) 0 % (0-2); EOSINOPHILS % (MANUAL) 0 % (0-7); LYMPHOCYTES % (MANUAL) 1 % (20-46); MONOCYTES % (MANUAL) 4 % (0-11)
[2022-11-04] MEDS ORDERED: INSULIN REGULAR, HUMAN 10 UNITS/0.1 ML, 3 ML VIAL IVP ONE (15:45)
[2022-11-04] MEDS ORDERED: PIPERACILLIN/TAZO 3.375 GM in NS 50 ML IV ONE (16:15)
[2022-11-04] MEDS ORDERED: VANCOMYCIN HCL 1,000 MG in NS 250 ML IV ONE (16:15)
[2022-11-04 16:28] LABS: BILIRUBIN,URINE NEGATIVE (NEGATIVE); BLOOD, URINE 2+ (NEGATIVE); COLOR,URINE YELLOW (YELLOW); GLUCOSE,URINE 3+ (NEGATIVE); KETONES,URINE TRACE (NEGATIVE); LEUKOCYTE ESTERASE ,URINE TRACE (NEGATIVE); NITRITE, URINE POSITIVE (NEGATIVE); PROTEIN URINE 2+ (NEGATIVE); UROBILINOGEN,URINE 0.2 (0.2-1.0)
[2022-11-04 16:32] LABS: CLARITY/URINE CLOUDY (CLEAR)
[2022-11-04 16:43] LABS: WBC,URINE >100 /HPF (0-3)
[2022-11-04 16:44] LABS: BACTERIA,URINE MANY /HPF (None Seen); MUCUS,URINE None Seen /LPF (None Seen)
[2022-11-04] MEDS ORDERED: VANCOMYCIN HCL 1000 MG/VIAL IV ONE (16:49)
[2022-11-04] MEDS ORDERED: PIPERACILLIN/TAZOBACTAM 3.375 GM/VIAL (ZOSYN) IV ONE (16:49)
[2022-11-04] MEDS ORDERED: HYDROcodone/ACETAMIN 10-325 MG TAB PO PRN (22:45)
[2022-11-04] MEDS ORDERED: HYDROcodone/ACETAMIN 5-325 MG TAB (NORCO/ VICODIN) PO PRN ×2 (22:45→23:45)
[2022-11-04] MEDS ORDERED: MORPHINE 2 MG/ML INJ. SYRINGE IVP PRN (22:45)
[2022-11-04] MEDS ORDERED: ACETAMINOPHEN 325 MG TABLET PO PRN ×2 (22:45→23:45)
[2022-11-04] MEDS ORDERED: BISACODYL 10 MG/SUPPOSITORY RC PRN (23:45)
[2022-11-04] MEDS ORDERED: LORazepam 2 MG/ML VIAL IVP PRN (23:45)
[2022-11-04] MEDS ORDERED: ONDANSETRON HCL 4 MG/2 ML VIAL IVP PRN (23:45)
[2022-11-04] MEDS ORDERED: FUROSEMIDE 20 MG TABLET PO PRN (23:45)
[2022-11-05] VITALS (8 sets, daily range): BP systolic 117–147
[2022-11-05 05:52] LABS: BASOPHILS # (AUTO) 0.1 K/uL (0.0-0.2); BASOPHILS % (AUTO) 0.3 % (0.0-2.0); EOSINOPHILS # (AUTO) 0.1 K/uL (0.0-0.4); EOSINOPHILS % (AUTO) 0.6 % (0.0-4.0); HEMATOCRIT 36.4 % (36-54); HEMOGLOBIN 12.1 g/dL (14.0-18.0); LYMPHOCYTES % (AUTO) 4.6 % (20.5-51.5); MEAN CORPUSCULAR HEMOGLOBIN 27 pg (27-31); MEAN CORPUSCULAR HGB CONC 33 % (32-36); MEAN CORPUSCULAR VOLUME 82 fL (79.0-98.0); MONOCYTES # (AUTO) 1.8 K/uL (0.0-1.0); MONOCYTES % (AUTO) 8.5 % (1.7-9.3); PLATELET COUNT (AUTO) 184 K/uL (130-430); RED BLOOD CELL COUNT(AUTO) 4.47 MIL/uL (4.2-6.2); RED CELL DISTRIBUTION WIDTH 15.2 % (9.0-15.0); WHITE BLOOD COUNT (AUTO) 20.9 K/uL (4.8-10.8)
[2022-11-05] MEDS: NORMAL SALINE 5 ML DISP.SYRIN IVF SCH ×3 (06:03→21:13)
[2022-11-05 06:12] LABS: CALCIUM 8.2 mg/dL (8.4-11.0); CREATININE 1.4 mg/dL (0.55-1.30)
[2022-11-05] MEDS: PIPERACILLIN/TAZO 3.375/DEX-IS 50 ML IV SCH ×5 (06:17→23:56)
[2022-11-05] MEDS: INSULIN Lispro 100 UNITS/ML, 3 ML VIAL (humaLOG) SUBCUT SCH ×3 (06:33→17:01)
[2022-11-05] MEDS: INSULIN LISPRO SLIDING SCALE 100 UNITS/ML, 3 ML VIAL (humaLOG) SUBCUT PRN ×4 (06:38→21:09)
[2022-11-05] MEDS: DOCUSATE SODIUM 100 MG CAPSULE PO SCH ×2 (09:00→20:57)
[2022-11-05] MEDS: CHOLECALCIFEROL (VITAMIN D3) 2,000 UNIT TABLET PO SCH ×2 (10:12→21:01)
[2022-11-05] MEDS: GABAPENTIN 300 MG CAPSULE PO SCH ×3 (10:15→20:58)
[2022-11-05] MEDS ORDERED: POTASSIUM CHLORIDE 20 MEQ TAB.PRT.SR PO ONE (10:15)
[2022-11-05] MEDS: LOSARTAN POTASSIUM 50 MG TABLET (COZAAR) PO SCH (10:16)
[2022-11-05] MEDS: HYDROcodone/ACETAMIN 10-325 MG TAB PO PRN ×3 (10:17→22:19)
[2022-11-05] MEDS: TAMSULOSIN HCL 0.4 MG CAP PO SCH (10:17)
[2022-11-05] MEDS: GEMFIBROZIL 600 MG TABLET (LOPID) PO SCH ×2 (10:17→20:58)
[2022-11-05] MEDS: FINASTERIDE 5 MG TABLET (PROSCAR) PO SCH (10:17)
[2022-11-05] MEDS: ASPIRIN 81 MG TABLET(ECOTRIN) PO SCH (10:17)
[2022-11-05] MEDS: amLODIPine BESYLATE 10 MG TABLET PO SCH (10:18)
[2022-11-05] MEDS: APIXABAN 2.5 MG TABLET PO SCH ×2 (10:23→21:00)
[2022-11-05] MEDS: INSULIN GLARGINE 100 UNITS/ML, 10 ML VIAL SUBCUT SCH ×2 (10:25→21:08)
[2022-11-05] MEDS ORDERED: MENTHOL/ZINC OXIDE 113 GM OINT. TP PRN (14:45)
[2022-11-05] MEDS: MONTELUKAST 10 MG TABLET PO SCH (17:05)
[2022-11-05] MEDS: MORPHINE 2 MG/ML INJ. SYRINGE IVP PRN (17:45)
[2022-11-06 00:29] VITALS: BP_SYST 121
[2022-11-06] MEDS: PIPERACILLIN/TAZO 3.375/DEX-IS 50 ML IV SCH ×4 (05:36→22:58)
[2022-11-06] MEDS: NORMAL SALINE 5 ML DISP.SYRIN IVF SCH ×3 (05:37→23:02)
[2022-11-06 05:53] LABS: BASOPHILS % (AUTO) 0.1 % (0.0-2.0); EOSINOPHILS # (AUTO) 0.3 K/uL (0.0-0.4); EOSINOPHILS % (AUTO) 1.1 % (0.0-4.0); HEMATOCRIT 35.3 % (36-54); HEMOGLOBIN 11.6 g/dL (14.0-18.0); LYMPHOCYTES # (AUTO) 1.2 K/uL (1.0-5.5); LYMPHOCYTES % (AUTO) 4.7 % (20.5-51.5); MEAN CORPUSCULAR HEMOGLOBIN 27 pg (27-31); MEAN CORPUSCULAR HGB CONC 33 % (32-36); MEAN CORPUSCULAR VOLUME 81 fL (79.0-98.0); MONOCYTES # (AUTO) 1.6 K/uL (0.0-1.0); MONOCYTES % (AUTO) 6.2 % (1.7-9.3); NEUTROPHILS # (AUTO) 21.8 K/uL (1.8-7.7); NEUTROPHILS % (AUTO) 87.9 % (40.0-70.0); PLATELET COUNT (AUTO) 190 K/uL (130-430); RED BLOOD CELL COUNT(AUTO) 4.36 MIL/uL (4.2-6.2); RED CELL DISTRIBUTION WIDTH 14.7 % (9.0-15.0); WHITE BLOOD COUNT (AUTO) 24.8 K/uL (4.8-10.8)
[2022-11-06] MEDS: HYDROcodone/ACETAMIN 10-325 MG TAB PO PRN ×2 (06:07→22:47)
[2022-11-06] MEDS: INSULIN LISPRO SLIDING SCALE 100 UNITS/ML, 3 ML VIAL (humaLOG) SUBCUT PRN ×3 (06:08→17:14)
[2022-11-06] MEDS: INSULIN Lispro 100 UNITS/ML, 3 ML VIAL (humaLOG) SUBCUT SCH ×3 (06:10→17:12)
[2022-11-06 07:10] LABS: ALBUMIN 2.3 g/dL (3.4-4.8); CALCIUM 8.3 mg/dL (8.4-11.0); CREATININE 1.5 mg/dL (0.55-1.30); PHOSPHORUS 3.9 mg/dL (2.7-4.5); TOTAL BILIRUBIN 0.6 mg/dL (0.0-1.0)
[2022-11-06 07:41] LABS: ERYTHROCYTE SEDIMENTATION RATE 89 MM/HR (0-15)
[2022-11-06 08:11] VITALS: BP_SYST 118
[2022-11-06 08:40] LABS: C-REACTIVE PROTEIN QUANT 33.6 mg/dL (0-0.5)
[2022-11-06] MEDS: DOCUSATE SODIUM 100 MG CAPSULE PO SCH ×2 (09:07→20:44)
[2022-11-06] MEDS: TAMSULOSIN HCL 0.4 MG CAP PO SCH (09:07)
[2022-11-06] MEDS: GABAPENTIN 300 MG CAPSULE PO SCH ×3 (09:07→20:47)
[2022-11-06] MEDS: GEMFIBROZIL 600 MG TABLET (LOPID) PO SCH ×2 (09:08→20:46)
[2022-11-06] MEDS: amLODIPine BESYLATE 10 MG TABLET PO SCH (09:09)
[2022-11-06] MEDS: LOSARTAN POTASSIUM 50 MG TABLET (COZAAR) PO SCH (09:09)
[2022-11-06] MEDS: ASPIRIN 81 MG TABLET(ECOTRIN) PO SCH (09:09)
[2022-11-06] MEDS: CHOLECALCIFEROL (VITAMIN D3) 2,000 UNIT TABLET PO SCH ×2 (09:10→20:30)
[2022-11-06] MEDS: APIXABAN 2.5 MG TABLET PO SCH ×2 (09:11→20:29)
[2022-11-06] MEDS: BALSAM PERU/CASTOR OIL 56.7 GM OINT...G. TP SCH (09:12)
[2022-11-06] MEDS: INSULIN GLARGINE 100 UNITS/ML, 10 ML VIAL SUBCUT SCH ×2 (09:17→20:40)
[2022-11-06 11:21] VITALS: BP_SYST 129
[2022-11-06] MEDS ORDERED: METOPROLOL SUCCINATE 25 MG TAB.SR.24H (TOPROL XL) PO ONE (13:00)
[2022-11-06] MEDS: FINASTERIDE 5 MG TABLET (PROSCAR) PO SCH (13:54)
[2022-11-06 15:17] VITALS: BP_SYST 131
[2022-11-06] MEDS: DAPTOmycin 500 MG in NS 50 ML IV SCH (16:14)
[2022-11-06] MEDS: MONTELUKAST 10 MG TABLET PO SCH (17:02)
[2022-11-07] VITALS (7 sets, daily range): BP systolic 120–153
[2022-11-07] MEDS: MORPHINE 2 MG/ML INJ. SYRINGE IVP PRN ×3 (01:57→13:22)
[2022-11-07] MEDS: NORMAL SALINE 5 ML DISP.SYRIN IVF SCH ×3 (05:53→21:23)
[2022-11-07] MEDS: PIPERACILLIN/TAZO 3.375/DEX-IS 50 ML IV SCH ×4 (05:54→23:36)
[2022-11-07 06:04] LABS: BASOPHILS # (AUTO) 0.1 K/uL (0.0-0.2); BASOPHILS % (AUTO) 0.9 % (0.0-2.0); EOSINOPHILS # (AUTO) 0.5 K/uL (0.0-0.4); EOSINOPHILS % (AUTO) 3.8 % (0.0-4.0); HEMATOCRIT 33.5 % (36-54); HEMOGLOBIN 11.1 g/dL (14.0-18.0); LYMPHOCYTES # (AUTO) 1.7 K/uL (1.0-5.5); MEAN CORPUSCULAR HEMOGLOBIN 27 pg (27-31); MEAN CORPUSCULAR HGB CONC 33 % (32-36); MEAN CORPUSCULAR VOLUME 81 fL (79.0-98.0); MONOCYTES % (AUTO) 7.5 % (1.7-9.3); NEUTROPHILS # (AUTO) 9.6 K/uL (1.8-7.7); NEUTROPHILS % (AUTO) 74.8 % (40.0-70.0); PLATELET COUNT (AUTO) 202 K/uL (130-430); RED BLOOD CELL COUNT(AUTO) 4.16 MIL/uL (4.2-6.2); RED CELL DISTRIBUTION WIDTH 14.7 % (9.0-15.0); WHITE BLOOD COUNT (AUTO) 12.8 K/uL (4.8-10.8)
[2022-11-07 06:24] LABS: CALCIUM 8.1 mg/dL (8.4-11.0); CREATININE 1.2 mg/dL (0.55-1.30); PHOSPHORUS 4.1 mg/dL (2.7-4.5)
[2022-11-07] MEDS: INSULIN Lispro 100 UNITS/ML, 3 ML VIAL (humaLOG) SUBCUT SCH ×3 (06:43→19:05)
[2022-11-07 08:52] LABS: ERYTHROCYTE SEDIMENTATION RATE 80 MM/HR (0-15)
[2022-11-07] MEDS: INSULIN GLARGINE 100 UNITS/ML, 10 ML VIAL SUBCUT SCH ×2 (09:00→20:44)
[2022-11-07] MEDS: FINASTERIDE 5 MG TABLET (PROSCAR) PO SCH (09:00)
[2022-11-07] MEDS: ASPIRIN 81 MG TABLET(ECOTRIN) PO SCH (09:00)
[2022-11-07] MEDS: CHOLECALCIFEROL (VITAMIN D3) 2,000 UNIT TABLET PO SCH ×2 (09:00→20:31)
[2022-11-07] MEDS ORDERED: REGADENOSON 0.4 MG/5 ML SYRINGE IVP ONE (10:00)
[2022-11-07] MEDS ORDERED: POTASSIUM CHLORIDE 20 MEQ TAB.PRT.SR PO ONE (10:45)
[2022-11-07] MEDS: GABAPENTIN 300 MG CAPSULE PO SCH ×3 (11:47→20:31)
[2022-11-07] MEDS: GEMFIBROZIL 600 MG TABLET (LOPID) PO SCH ×2 (11:48→20:30)
[2022-11-07] MEDS: TAMSULOSIN HCL 0.4 MG CAP PO SCH (11:49)
[2022-11-07] MEDS: amLODIPine BESYLATE 10 MG TABLET PO SCH (11:51)
[2022-11-07] MEDS: DOCUSATE SODIUM 100 MG CAPSULE PO SCH ×2 (11:51→20:31)
[2022-11-07] MEDS: METOPROLOL SUCCINATE 25 MG TAB.SR.24H (TOPROL XL) PO SCH (11:53)
[2022-11-07] MEDS: LOSARTAN POTASSIUM 50 MG TABLET (COZAAR) PO SCH (11:54)
[2022-11-07] MEDS: APIXABAN 2.5 MG TABLET PO SCH ×2 (11:55→20:34)
[2022-11-07] MEDS: INSULIN LISPRO SLIDING SCALE 100 UNITS/ML, 3 ML VIAL (humaLOG) SUBCUT PRN (13:08)
[2022-11-07] MEDS: BALSAM PERU/CASTOR OIL 56.7 GM OINT...G. TP SCH (13:52)
[2022-11-07] MEDS: DAPTOmycin 500 MG in NS 50 ML IV SCH (16:19)
[2022-11-07] MEDS: MONTELUKAST 10 MG TABLET PO SCH (17:55)
[2022-11-07] MEDS: HYDROcodone/ACETAMIN 10-325 MG TAB PO PRN (20:32)
[2022-11-07] MEDS: FUROSEMIDE 40 MG/4 ML VIAL IVP SCH (20:58)
[2022-11-07] MEDS ORDERED: BENZOCAINE/MENTHOL 1 EACH LOZENGE MM PRN (21:15)
[2022-11-08 00:32] VITALS: BP_SYST 122
[2022-11-08 05:47] LABS: BASOPHILS % (AUTO) 0.5 % (0.0-2.0); EOSINOPHILS # (AUTO) 0.4 K/uL (0.0-0.4); EOSINOPHILS % (AUTO) 4.6 % (0.0-4.0); HEMATOCRIT 34.8 % (36-54); HEMOGLOBIN 11.7 g/dL (14.0-18.0); LYMPHOCYTES # (AUTO) 1.5 K/uL (1.0-5.5); LYMPHOCYTES % (AUTO) 18.1 % (20.5-51.5); MEAN CORPUSCULAR HEMOGLOBIN 27 pg (27-31); MEAN CORPUSCULAR HGB CONC 34 % (32-36); MEAN CORPUSCULAR VOLUME 81 fL (79.0-98.0); MONOCYTES # (AUTO) 0.8 K/uL (0.0-1.0); MONOCYTES % (AUTO) 9.9 % (1.7-9.3); NEUTROPHILS # (AUTO) 5.5 K/uL (1.8-7.7); NEUTROPHILS % (AUTO) 66.9 % (40.0-70.0); PLATELET COUNT (AUTO) 209 K/uL (130-430); RED BLOOD CELL COUNT(AUTO) 4.31 MIL/uL (4.2-6.2); RED CELL DISTRIBUTION WIDTH 14.8 % (9.0-15.0); WHITE BLOOD COUNT (AUTO) 8.2 K/uL (4.8-10.8)
[2022-11-08] MEDS: PIPERACILLIN/TAZO 3.375/DEX-IS 50 ML IV SCH (06:10)
[2022-11-08] MEDS: NORMAL SALINE 5 ML DISP.SYRIN IVF SCH ×3 (06:10→21:42)
[2022-11-08] MEDS: INSULIN Lispro 100 UNITS/ML, 3 ML VIAL (humaLOG) SUBCUT SCH ×3 (06:15→17:17)
[2022-11-08 06:26] LABS: ALBUMIN 2.1 g/dL (3.4-4.8); C-REACTIVE PROTEIN QUANT 12.4 mg/dL (0-0.5); CALCIUM 8.5 mg/dL (8.4-11.0); CREATININE 0.93 mg/dL (0.55-1.30); TOTAL BILIRUBIN 0.3 mg/dL (0.0-1.0)
[2022-11-08 07:00] LABS: ERYTHROCYTE SEDIMENTATION RATE 82 MM/HR (0-15)
[2022-11-08 08:00] VITALS: BP_SYST 146
[2022-11-08] MEDS: INSULIN GLARGINE 100 UNITS/ML, 10 ML VIAL SUBCUT SCH ×3 (09:00→21:00)
[2022-11-08] MEDS: FINASTERIDE 5 MG TABLET (PROSCAR) PO SCH (09:05)
[2022-11-08] MEDS: METOPROLOL SUCCINATE 25 MG TAB.SR.24H (TOPROL XL) PO SCH (09:06)
[2022-11-08] MEDS: GEMFIBROZIL 600 MG TABLET (LOPID) PO SCH ×2 (09:06→21:41)
[2022-11-08] MEDS: GABAPENTIN 300 MG CAPSULE PO SCH ×3 (09:06→21:41)
[2022-11-08] MEDS: DOCUSATE SODIUM 100 MG CAPSULE PO SCH ×2 (09:07→21:41)
[2022-11-08] MEDS: CHOLECALCIFEROL (VITAMIN D3) 2,000 UNIT TABLET PO SCH ×2 (09:07→21:42)
[2022-11-08] MEDS: LOSARTAN POTASSIUM 50 MG TABLET (COZAAR) PO SCH (09:07)
[2022-11-08] MEDS: ASPIRIN 81 MG TABLET(ECOTRIN) PO SCH (09:07)
[2022-11-08] MEDS: TAMSULOSIN HCL 0.4 MG CAP PO SCH (09:07)
[2022-11-08] MEDS: APIXABAN 2.5 MG TABLET PO SCH ×2 (09:08→22:00)
[2022-11-08] MEDS: amLODIPine BESYLATE 10 MG TABLET PO SCH (09:12)
[2022-11-08] MEDS: FUROSEMIDE 40 MG/4 ML VIAL IVP SCH ×2 (09:12→21:41)
[2022-11-08] MEDS: BALSAM PERU/CASTOR OIL 56.7 GM OINT...G. TP SCH (09:49)
[2022-11-08] MEDS: CLINDAMYCIN HCL 150 MG CAPSULE PO SCH ×3 (11:53→23:06)
[2022-11-08 12:00] VITALS: BP_SYST 138
[2022-11-08] MEDS ORDERED: METOPROLOL SUCCINATE 25 MG TAB.SR.24H (TOPROL XL) PO ONE (14:00)
[2022-11-08 16:00] VITALS: BP_SYST 144
[2022-11-08] MEDS: CEFTRIAXONE SOD 1 GM/ D5W 50 ML IV SCH ×2 (17:09)
[2022-11-08] MEDS: MONTELUKAST 10 MG TABLET PO SCH (17:11)
[2022-11-08] MEDS: INSULIN LISPRO SLIDING SCALE 100 UNITS/ML, 3 ML VIAL (humaLOG) SUBCUT PRN (17:20)
[2022-11-08 20:00] VITALS: BP_SYST 168
[2022-11-08] MEDS ORDERED: INSULIN GLARGINE 100 UNITS/ML, 10 ML VIAL SUBCUT ONE (22:15)
[2022-11-09] VITALS (7 sets, daily range): BP systolic 132–163
[2022-11-09] MEDS: HYDROcodone/ACETAMIN 10-325 MG TAB PO PRN ×3 (00:35→15:38)
[2022-11-09] MEDS: CLINDAMYCIN HCL 150 MG CAPSULE PO SCH ×4 (06:14→23:31)
[2022-11-09] MEDS: NORMAL SALINE 5 ML DISP.SYRIN IVF SCH ×3 (06:14→22:04)
[2022-11-09] MEDS: INSULIN Lispro 100 UNITS/ML, 3 ML VIAL (humaLOG) SUBCUT SCH ×3 (06:18→17:53)
[2022-11-09 06:28] LABS: BASOPHILS % (AUTO) 0.5 % (0.0-2.0); EOSINOPHILS # (AUTO) 0.4 K/uL (0.0-0.4); EOSINOPHILS % (AUTO) 3.9 % (0.0-4.0); HEMATOCRIT 36.5 % (36-54); HEMOGLOBIN 12.2 g/dL (14.0-18.0); LYMPHOCYTES # (AUTO) 1.9 K/uL (1.0-5.5); LYMPHOCYTES % (AUTO) 18.7 % (20.5-51.5); MEAN CORPUSCULAR HEMOGLOBIN 27 pg (27-31); MEAN CORPUSCULAR HGB CONC 33 % (32-36); MEAN CORPUSCULAR VOLUME 81 fL (79.0-98.0); MONOCYTES # (AUTO) 0.9 K/uL (0.0-1.0); MONOCYTES % (AUTO) 8.7 % (1.7-9.3); NEUTROPHILS % (AUTO) 68.2 % (40.0-70.0); PLATELET COUNT (AUTO) 250 K/uL (130-430); RED BLOOD CELL COUNT(AUTO) 4.53 MIL/uL (4.2-6.2); RED CELL DISTRIBUTION WIDTH 15.1 % (9.0-15.0); WHITE BLOOD COUNT (AUTO) 10.3 K/uL (4.8-10.8)
[2022-11-09 06:47] LABS: C-REACTIVE PROTEIN QUANT 8.5 mg/dL (0-0.5); CALCIUM 9.1 mg/dL (8.4-11.0); CREATININE 0.98 mg/dL (0.55-1.30)
[2022-11-09] MEDS: FUROSEMIDE 40 MG/4 ML VIAL IVP SCH ×2 (08:47→21:54)
[2022-11-09] MEDS: FINASTERIDE 5 MG TABLET (PROSCAR) PO SCH (08:47)
[2022-11-09] MEDS: GABAPENTIN 300 MG CAPSULE PO SCH ×3 (08:47→21:49)
[2022-11-09] MEDS: DOCUSATE SODIUM 100 MG CAPSULE PO SCH ×2 (08:47→21:49)
[2022-11-09] MEDS: amLODIPine BESYLATE 10 MG TABLET PO SCH (08:48)
[2022-11-09] MEDS: TAMSULOSIN HCL 0.4 MG CAP PO SCH (08:48)
[2022-11-09] MEDS: ASPIRIN 81 MG TABLET(ECOTRIN) PO SCH (08:48)
[2022-11-09] MEDS: GEMFIBROZIL 600 MG TABLET (LOPID) PO SCH ×2 (08:48→21:49)
[2022-11-09] MEDS: METOPROLOL SUCCINATE 25 MG TAB.SR.24H (TOPROL XL) PO SCH (08:49)
[2022-11-09] MEDS: LOSARTAN POTASSIUM 50 MG TABLET (COZAAR) PO SCH (08:50)
[2022-11-09] MEDS: APIXABAN 2.5 MG TABLET PO SCH ×2 (08:52→21:50)
[2022-11-09] MEDS: CHOLECALCIFEROL (VITAMIN D3) 2,000 UNIT TABLET PO SCH ×2 (08:53→21:49)
[2022-11-09] MEDS: BALSAM PERU/CASTOR OIL 56.7 GM OINT...G. TP SCH (09:03)
[2022-11-09] MEDS: INSULIN GLARGINE 100 UNITS/ML, 10 ML VIAL SUBCUT SCH ×2 (09:03→21:51)
[2022-11-09 09:50] LABS: ERYTHROCYTE SEDIMENTATION RATE 97 MM/HR (0-15)
[2022-11-09] MEDS: INSULIN LISPRO SLIDING SCALE 100 UNITS/ML, 3 ML VIAL (humaLOG) SUBCUT PRN ×3 (12:03→21:53)
[2022-11-09] MEDS: CEFTRIAXONE SOD 1 GM/ D5W 50 ML IV SCH ×2 (15:22)
[2022-11-09] MEDS: MONTELUKAST 10 MG TABLET PO SCH (18:57)
[2022-11-09] MEDS: MORPHINE 2 MG/ML INJ. SYRINGE IVP PRN (22:04)
[2022-11-10] VITALS: BP_SYST 144
[2022-11-10] MEDS: NORMAL SALINE 5 ML DISP.SYRIN IVF SCH ×3 (05:30→21:44)
[2022-11-10] MEDS: CLINDAMYCIN HCL 150 MG CAPSULE PO SCH ×3 (06:15→17:28)
[2022-11-10] MEDS: INSULIN Lispro 100 UNITS/ML, 3 ML VIAL (humaLOG) SUBCUT SCH ×3 (07:00→17:24)
[2022-11-10] MEDS: INSULIN LISPRO SLIDING SCALE 100 UNITS/ML, 3 ML VIAL (humaLOG) SUBCUT PRN ×4 (07:01→21:43)
[2022-11-10 07:20] LABS: BASOPHILS # (AUTO) 0.1 K/uL (0.0-0.2); BASOPHILS % (AUTO) 0.6 % (0.0-2.0); EOSINOPHILS # (AUTO) 0.4 K/uL (0.0-0.4); HEMATOCRIT 37.1 % (36-54); HEMOGLOBIN 12.1 g/dL (14.0-18.0); LYMPHOCYTES # (AUTO) 2.2 K/uL (1.0-5.5); LYMPHOCYTES % (AUTO) 17.2 % (20.5-51.5); MEAN CORPUSCULAR HEMOGLOBIN 27 pg (27-31); MEAN CORPUSCULAR HGB CONC 33 % (32-36); MEAN CORPUSCULAR VOLUME 81 fL (79.0-98.0); MONOCYTES # (AUTO) 0.9 K/uL (0.0-1.0); MONOCYTES % (AUTO) 7.4 % (1.7-9.3); NEUTROPHILS # (AUTO) 9.1 K/uL (1.8-7.7); NEUTROPHILS % (AUTO) 71.8 % (40.0-70.0); PLATELET COUNT (AUTO) 274 K/uL (130-430); RED BLOOD CELL COUNT(AUTO) 4.59 MIL/uL (4.2-6.2); RED CELL DISTRIBUTION WIDTH 15.1 % (9.0-15.0); WHITE BLOOD COUNT (AUTO) 12.6 K/uL (4.8-10.8)
[2022-11-10 07:21] LABS: C-REACTIVE PROTEIN QUANT 5.7 mg/dL (0-0.5); CALCIUM 9.4 mg/dL (8.4-11.0)
[2022-11-10 07:55] LABS: ERYTHROCYTE SEDIMENTATION RATE 90 MM/HR (0-15)
[2022-11-10 08:00] VITALS: BP_SYST 144
[2022-11-10] MEDS: TAMSULOSIN HCL 0.4 MG CAP PO SCH (09:22)
[2022-11-10] MEDS: FUROSEMIDE 40 MG/4 ML VIAL IVP SCH ×2 (09:22→21:33)
[2022-11-10] MEDS: GEMFIBROZIL 600 MG TABLET (LOPID) PO SCH ×2 (09:22→21:33)
[2022-11-10] MEDS: ASPIRIN 81 MG TABLET(ECOTRIN) PO SCH (09:22)
[2022-11-10] MEDS: METOPROLOL SUCCINATE 25 MG TAB.SR.24H (TOPROL XL) PO SCH (09:23)
[2022-11-10] MEDS: GABAPENTIN 300 MG CAPSULE PO SCH ×3 (09:23→21:32)
[2022-11-10] MEDS: APIXABAN 2.5 MG TABLET PO SCH ×2 (09:23→21:34)
[2022-11-10] MEDS: LOSARTAN POTASSIUM 50 MG TABLET (COZAAR) PO SCH (09:23)
[2022-11-10] MEDS: FINASTERIDE 5 MG TABLET (PROSCAR) PO SCH (09:24)
[2022-11-10] MEDS: amLODIPine BESYLATE 10 MG TABLET PO SCH (09:24)
[2022-11-10] MEDS: CHOLECALCIFEROL (VITAMIN D3) 2,000 UNIT TABLET PO SCH ×2 (09:25→21:33)
[2022-11-10] MEDS: HYDROcodone/ACETAMIN 10-325 MG TAB PO PRN (09:25)
[2022-11-10] MEDS: INSULIN GLARGINE 100 UNITS/ML, 10 ML VIAL SUBCUT SCH ×2 (09:31→21:41)
[2022-11-10] MEDS: DOCUSATE SODIUM 100 MG CAPSULE PO SCH ×2 (09:32→21:32)
[2022-11-10] MEDS: BALSAM PERU/CASTOR OIL 56.7 GM OINT...G. TP SCH (09:32)
[2022-11-10] MEDS ORDERED: IPRATROPIUM/ALBUTEROL SULFATE 3 ML AMPUL.NEB (DUONEB) INH SCH (11:15)
[2022-11-10] MEDS ORDERED: IPRATROPIUM/ALBUTEROL SULFATE 3 ML AMPUL.NEB (DUONEB) INH PRN (13:00)
[2022-11-10] MEDS: IPRATROPIUM/ALBUTEROL SULFATE 3 ML AMPUL.NEB (DUONEB) INH SCH ×2 (13:02→19:30)
[2022-11-10] MEDS: CEFTRIAXONE SOD 1 GM/ D5W 50 ML IV SCH ×2 (16:09)
[2022-11-10] MEDS: MONTELUKAST 10 MG TABLET PO SCH (17:30)
[2022-11-10 20:00] VITALS: BP_SYST 142
[2022-11-11] VITALS: BP_SYST 118
[2022-11-11] MEDS: CLINDAMYCIN HCL 150 MG CAPSULE PO SCH ×4 (00:29→17:39)
[2022-11-11] MEDS: IPRATROPIUM/ALBUTEROL SULFATE 3 ML AMPUL.NEB (DUONEB) INH SCH ×4 (01:00→21:18)
[2022-11-11] MEDS: NORMAL SALINE 5 ML DISP.SYRIN IVF SCH ×3 (05:11→21:22)
[2022-11-11 06:30] LABS: BASOPHILS # (AUTO) 0.1 K/uL (0.0-0.2); BASOPHILS % (AUTO) 0.5 % (0.0-2.0); EOSINOPHILS # (AUTO) 0.3 K/uL (0.0-0.4); EOSINOPHILS % (AUTO) 2.2 % (0.0-4.0); HEMATOCRIT 37.1 % (36-54); HEMOGLOBIN 12.3 g/dL (14.0-18.0); LYMPHOCYTES # (AUTO) 2.4 K/uL (1.0-5.5); LYMPHOCYTES % (AUTO) 18.2 % (20.5-51.5); MEAN CORPUSCULAR HEMOGLOBIN 27 pg (27-31); MEAN CORPUSCULAR HGB CONC 33 % (32-36); MEAN CORPUSCULAR VOLUME 80 fL (79.0-98.0); MONOCYTES # (AUTO) 0.8 K/uL (0.0-1.0); MONOCYTES % (AUTO) 6.4 % (1.7-9.3); NEUTROPHILS # (AUTO) 9.5 K/uL (1.8-7.7); NEUTROPHILS % (AUTO) 72.7 % (40.0-70.0); PLATELET COUNT (AUTO) 274 K/uL (130-430); RED BLOOD CELL COUNT(AUTO) 4.62 MIL/uL (4.2-6.2); WHITE BLOOD COUNT (AUTO) 13.1 K/uL (4.8-10.8)
[2022-11-11] MEDS: INSULIN Lispro 100 UNITS/ML, 3 ML VIAL (humaLOG) SUBCUT SCH ×3 (06:46→17:51)
[2022-11-11] MEDS: INSULIN LISPRO SLIDING SCALE 100 UNITS/ML, 3 ML VIAL (humaLOG) SUBCUT PRN ×3 (06:47→22:12)
[2022-11-11 06:58] LABS: ALBUMIN 2.5 g/dL (3.4-4.8); C-REACTIVE PROTEIN QUANT 4.3 mg/dL (0-0.5); CALCIUM 9.3 mg/dL (8.4-11.0); CREATININE 1.14 mg/dL (0.55-1.30); TOTAL BILIRUBIN 0.2 mg/dL (0.0-1.0)
[2022-11-11 07:20] LABS: ERYTHROCYTE SEDIMENTATION RATE 88 MM/HR (0-15)
[2022-11-11 08:00] VITALS: BP_SYST 118
[2022-11-11] MEDS: METOPROLOL SUCCINATE 25 MG TAB.SR.24H (TOPROL XL) PO SCH (09:00)
[2022-11-11] MEDS: CHOLECALCIFEROL (VITAMIN D3) 2,000 UNIT TABLET PO SCH ×2 (09:00→21:23)
[2022-11-11] MEDS: LOSARTAN POTASSIUM 50 MG TABLET (COZAAR) PO SCH (09:00)
[2022-11-11] MEDS: amLODIPine BESYLATE 10 MG TABLET PO SCH (09:00)
[2022-11-11] MEDS: BALSAM PERU/CASTOR OIL 56.7 GM OINT...G. TP SCH (09:00)
[2022-11-11] MEDS: TAMSULOSIN HCL 0.4 MG CAP PO SCH (11:09)
[2022-11-11] MEDS: GABAPENTIN 300 MG CAPSULE PO SCH ×3 (11:09→21:20)
[2022-11-11] MEDS: APIXABAN 2.5 MG TABLET PO SCH ×2 (11:14→21:18)
[2022-11-11] MEDS: GEMFIBROZIL 600 MG TABLET (LOPID) PO SCH ×2 (11:14→21:21)
[2022-11-11] MEDS: FUROSEMIDE 40 MG/4 ML VIAL IVP SCH ×2 (11:16→21:23)
[2022-11-11] MEDS: DOCUSATE SODIUM 100 MG CAPSULE PO SCH ×2 (11:16→21:21)
[2022-11-11] MEDS: FINASTERIDE 5 MG TABLET (PROSCAR) PO SCH (11:16)
[2022-11-11] MEDS: ASPIRIN 81 MG TABLET(ECOTRIN) PO SCH (11:56)
[2022-11-11 12:00] VITALS: BP_SYST 109
[2022-11-11] MEDS ORDERED: CIPROFLOXACIN HCL 500 MG TABLET PO ONE (12:00)
[2022-11-11] MEDS: INSULIN GLARGINE 100 UNITS/ML, 10 ML VIAL SUBCUT SCH ×2 (12:04→22:11)
[2022-11-11 16:00] VITALS: BP_SYST 109
[2022-11-11] MEDS: MONTELUKAST 10 MG TABLET PO SCH (17:39)
[2022-11-11] MEDS: CIPROFLOXACIN HCL 500 MG TABLET PO SCH (21:21)
[2022-11-12] MEDS: CLINDAMYCIN HCL 150 MG CAPSULE PO SCH ×4 (00:14→17:14)
[2022-11-12 00:39] VITALS: BP_SYST 115
[2022-11-12] MEDS: IPRATROPIUM/ALBUTEROL SULFATE 3 ML AMPUL.NEB (DUONEB) INH SCH ×3 (01:00→13:50)
[2022-11-12 06:05] LABS: BASOPHILS # (AUTO) 0.1 K/uL (0.0-0.2); BASOPHILS % (AUTO) 0.4 % (0.0-2.0); EOSINOPHILS # (AUTO) 0.4 K/uL (0.0-0.4); EOSINOPHILS % (AUTO) 2.6 % (0.0-4.0); HEMATOCRIT 35.8 % (36-54); HEMOGLOBIN 11.9 g/dL (14.0-18.0); LYMPHOCYTES # (AUTO) 2.6 K/uL (1.0-5.5); LYMPHOCYTES % (AUTO) 19.1 % (20.5-51.5); MEAN CORPUSCULAR HEMOGLOBIN 27 pg (27-31); MEAN CORPUSCULAR HGB CONC 33 % (32-36); MEAN CORPUSCULAR VOLUME 81 fL (79.0-98.0); MONOCYTES # (AUTO) 1.1 K/uL (0.0-1.0); MONOCYTES % (AUTO) 7.7 % (1.7-9.3); NEUTROPHILS # (AUTO) 9.7 K/uL (1.8-7.7); NEUTROPHILS % (AUTO) 70.2 % (40.0-70.0); PLATELET COUNT (AUTO) 260 K/uL (130-430); RED BLOOD CELL COUNT(AUTO) 4.42 MIL/uL (4.2-6.2); RED CELL DISTRIBUTION WIDTH 15.1 % (9.0-15.0); WHITE BLOOD COUNT (AUTO) 13.8 K/uL (4.8-10.8)
[2022-11-12 06:19] VITALS: BP_SYST 129
[2022-11-12] MEDS: NORMAL SALINE 5 ML DISP.SYRIN IVF SCH ×2 (06:21→15:38)
[2022-11-12 06:26] LABS: C-REACTIVE PROTEIN QUANT 3.5 mg/dL (0-0.5); CALCIUM 9.5 mg/dL (8.4-11.0); CREATININE 1.22 mg/dL (0.55-1.30)
[2022-11-12 07:23] LABS: ERYTHROCYTE SEDIMENTATION RATE 68 MM/HR (0-15)
[2022-11-12] MEDS ORDERED: FUROSEMIDE 20 MG/2 ML VIAL IVP SCH (09:00)
[2022-11-12] MEDS: GEMFIBROZIL 600 MG TABLET (LOPID) PO SCH (09:40)
[2022-11-12] MEDS: GABAPENTIN 300 MG CAPSULE PO SCH ×2 (09:41→15:38)
[2022-11-12] MEDS: CIPROFLOXACIN HCL 500 MG TABLET PO SCH (09:41)
[2022-11-12] MEDS: CHOLECALCIFEROL (VITAMIN D3) 2,000 UNIT TABLET PO SCH (09:41)
[2022-11-12] MEDS: DOCUSATE SODIUM 100 MG CAPSULE PO SCH (09:42)
[2022-11-12] MEDS: amLODIPine BESYLATE 10 MG TABLET PO SCH (09:42)
[2022-11-12] MEDS: TAMSULOSIN HCL 0.4 MG CAP PO SCH (09:44)
[2022-11-12] MEDS: HYDROcodone/ACETAMIN 10-325 MG TAB PO PRN (09:44)
[2022-11-12] MEDS: LOSARTAN POTASSIUM 50 MG TABLET (COZAAR) PO SCH (09:45)
[2022-11-12] MEDS: ASPIRIN 81 MG TABLET(ECOTRIN) PO SCH (09:45)
[2022-11-12] MEDS: FINASTERIDE 5 MG TABLET (PROSCAR) PO SCH (09:46)
[2022-11-12] MEDS: METOPROLOL SUCCINATE 25 MG TAB.SR.24H (TOPROL XL) PO SCH (09:46)
[2022-11-12] MEDS: APIXABAN 2.5 MG TABLET PO SCH (09:49)
[2022-11-12] MEDS: INSULIN Lispro 100 UNITS/ML, 3 ML VIAL (humaLOG) SUBCUT SCH ×3 (09:54→17:11)
[2022-11-12] MEDS: INSULIN GLARGINE 100 UNITS/ML, 10 ML VIAL SUBCUT SCH (09:54)
[2022-11-12] MEDS: BALSAM PERU/CASTOR OIL 56.7 GM OINT...G. TP SCH (09:58)
[2022-11-12] MEDS ORDERED: HYDR-3921 PO (10:47)
[2022-11-12 11:22] VITALS: BP_SYST 150
[2022-11-12 15:17] VITALS: BP_SYST 122
[2022-11-12] MEDS: MONTELUKAST 10 MG TABLET PO SCH (17:15)
[2022-11-12 17:47] VITALS: BP_SYST 148
== END 2022-11-12 19:30 | disposition home or self-care (01) | DRG 720 ==
LOC: SED 13:18 → SMU 16:20
PROVIDERS: ADMIT Preventive Medicine Preventive Medicine/Occupational Environmental Medicine; ATTEND Preventive Medicine Preventive Medicine/Occupational Environmental Medicine
DX: A41.51 Sepsis due to Escherichia coli [E. coli] (principal); N17.0 Acute kidney failure with tubular necrosis; E43 Unspecified severe protein-calorie malnutrition; E87.1 Hypo-osmolality and hyponatremia; E88.09 Other disorders of plasma-protein metabolism, not elsewhere classified; N39.0 Urinary tract infection, site not specified; E11.40 Type 2 diabetes mellitus with diabetic neuropathy, unspecified; B96.20 Unspecified Escherichia coli [E. coli] as the cause of diseases classified elsewhere; D64.9 Anemia, unspecified; I11.0 Hypertensive heart disease with heart failure; E11.51 Type 2 diabetes mellitus with diabetic peripheral angiopathy without gangrene; L03.115 Cellulitis of right lower limb; M86.9 Osteomyelitis, unspecified; E11.65 Type 2 diabetes mellitus with hyperglycemia; I50.32 Chronic diastolic (congestive) heart failure; E66.9 Obesity, unspecified; I25.10 Atherosclerotic heart disease of native coronary artery without angina pectoris; L03.116 Cellulitis of left lower limb; E87.8 Other disorders of electrolyte and fluid balance, not elsewhere classified; E87.6 Hypokalemia; E83.52 Hypercalcemia; E78.2 Mixed hyperlipidemia; I87.2 Venous insufficiency (chronic) (peripheral); K59.00 Constipation, unspecified; Z20.822 Contact with and (suspected) exposure to COVID-19; E11.69 Type 2 diabetes mellitus with other specified complication; N40.0 Benign prostatic hyperplasia without lower urinary tract symptoms; Z59.00 Homelessness unspecified; Z79.899 Other long term (current) drug therapy; Z86.718 Personal history of other venous thrombosis and embolism; Z85.831 Personal history of malignant neoplasm of soft tissue; Z83.3 Family history of diabetes mellitus; Z79.4 Long term (current) use of insulin; Z79.01 Long term (current) use of anticoagulants; Z79.2 Long term (current) use of antibiotics; Z68.38 Body mass index [BMI] 38.0-38.9, adult
CPT/HCPCS: 36415; 71045; 80048; 80053; 80061; 81000; 82306; 83605; 83735; 83880; 84100; 84443; 84484; 85007; 85025; 85027; 85379; 85610-TC; 85651-TC; 85730-TC; 86140; 87040; 87070-TC; 87086; 93005; 93017; 93923; 93970; 94640; 94760; 96365; 96368; 96375; 99291; A9500; J0696; J0878; J1815; J1940; J2270; J2405; J2543; J2785; J3370; J7060

== ENCOUNTER 2023-06-16 13:23 | Observation (INO) | payer MEDICAID ==
[~2023-06-16] VITALS: Ht 177.8 cm; Wt 122.5 kg
[~2023-06-16 13:23] MED LIST changes: -AMOX-423 PO; -APIX5TAB PO; +ASA81 PO; -ASPI-1393 PO; +ATOR40TA68 PO; +BACTROBAN TP; -Bisacodyl Suppository RC; -CEPH-548 PO; +CLON0.1T PO; -DOCU-144 PO; +ESCI10TA PO; -FINA5TAB3 PO; +FURO-149 PO; -FURO-150 PO; +GLIP5TAB26 PO; +HYDR-4039 PO; -INSU100V SUBCUT; +INSU100V44; +INSU100V9 SQ; -INSU100V9 SUBCUT; +LISI40TA13 PO; -LOP600 PO; -LOSA100T4 PO; +METF-379 PO; -MONT-40 PO; +NIFE-34 PO; -NOR10 PO; +POLY17PO4 PO; -SULF1TAB47 PO; -SULF1TAB48 PO; -TAMS-11 PO; -VITD2000 PO
[2023-06-16 13:47] VITALS: BP_SYST 116; PULSE 60; RESP 14; TEMP 97.7; O2SAT 94
[2023-06-16] MEDS ORDERED: ASPIRIN 81 MG TAB.CHEW PO ONE (14:30)
[2023-06-16] MEDS ORDERED: KETOROLAC TROMETHAMINE 60 MG/2 ML VIAL IM ONE (14:30)
[2023-06-16 15:19] LABS: BASOPHILS # (AUTO) 0.1 K/uL (0.0-0.2); BASOPHILS % (AUTO) 0.6 % (0.0-2.0); EOSINOPHILS # (AUTO) 0.5 K/uL (0.0-0.4); EOSINOPHILS % (AUTO) 5.5 % (0.0-4.0); HEMATOCRIT 34.3 % (36-54); HEMOGLOBIN 11.1 g/dL (14.0-18.0); LYMPHOCYTES # (AUTO) 1.8 K/uL (1.0-5.5); LYMPHOCYTES % (AUTO) 20.2 % (20.5-51.5); MEAN CORPUSCULAR HEMOGLOBIN 27 pg (27-31); MEAN CORPUSCULAR HGB CONC 32 % (32-36); MEAN CORPUSCULAR VOLUME 83 fL (79.0-98.0); MONOCYTES # (AUTO) 0.7 K/uL (0.0-1.0); MONOCYTES % (AUTO) 7.5 % (1.7-9.3); NEUTROPHILS # (AUTO) 5.9 K/uL (1.8-7.7); NEUTROPHILS % (AUTO) 66.2 % (40.0-70.0); PLATELET COUNT (AUTO) 238 K/uL (130-430); RED BLOOD CELL COUNT(AUTO) 4.14 MIL/uL (4.2-6.2); RED CELL DISTRIBUTION WIDTH 14.9 % (9.0-15.0)
[2023-06-16 15:25] LABS: ANION GAP 7 (5-15); CALCIUM 8.9 mg/dL (8.4-11.0); CARBON DIOXIDE 31 mmol/L (23-29); CHLORIDE 104 mmol/L (98-107); CREATININE 1.22 mg/dL (0.55-1.30); GFR AFRICAN AMERICAN 78 mL/min (>90); GLUCOSE 166 mg/dL (74-106); POTASSIUM 4.3 mmol/L (3.5-5.1); SODIUM SERUM 142 mmol/L (136-145); UREA NITROGEN, BLOOD 26 mg/dL (8-21)
[2023-06-16 15:31] LABS: ALANINE AMINOTRANSFERASE 24 U/L (12-78); ALBUMIN 3.3 g/dL (3.4-4.8); ASPARTATE AMINOTRANSFERASE 19 U/L (10-37); TOTAL BILIRUBIN 0.3 mg/dL (0.0-1.0); TOTAL PROTEIN, SERUM 7.1 g/dL (6.4-8.3)
[2023-06-16 15:38] LABS: GFR NON AFRICAN-AMERICAN 64 mL/min (>90)
[2023-06-16] MEDS ORDERED: ONDANSETRON HCL 4 MG/2 ML VIAL IVP ONE (16:15)
[2023-06-16] MEDS ORDERED: MORPHINE 4 MG INJ. 4 MG/ML VIAL IVP ONE (16:15)
[2023-06-16] MEDS ORDERED: NACL 0.9% 1,000 ML IV ONE (17:00)
[2023-06-16] MEDS ORDERED: ZOLPIDEM TARTRATE 5 MG TABLET PO PRN (17:15)
[2023-06-16] MEDS ORDERED: MAGNESIUM SULFATE 50 ML IV PRN (17:15)
[2023-06-16] MEDS ORDERED: POTASSIUM CHLORIDE 20 MEQ TAB.PRT.SR PO PRN (17:15)
[2023-06-16] MEDS ORDERED: DEXTROSE 50% JECT 50 ML DISP.SYRIN IVP PRN (17:15)
[2023-06-16] MEDS ORDERED: ACETAMINOPHEN 500 MG TABLET PO PRN ×2 (17:15→17:30)
[2023-06-16] MEDS ORDERED: LORazepam 2 MG/ML VIAL IVP PRN (17:15)
[2023-06-16] MEDS ORDERED: DOCUSATE SODIUM 100 MG CAPSULE PO PRN (17:15)
[2023-06-16] MEDS ORDERED: ONDANSETRON HCL 4 MG/2 ML VIAL IVP PRN (17:15)
[2023-06-16] MEDS ORDERED: MORPHINE 2 MG/ML INJ. SYRINGE IVP PRN (17:15)
[2023-06-16] MEDS ORDERED: INSULIN LISPRO SLIDING SCALE 100 UNITS/ML, 3 ML VIAL (humaLOG) SUBCUT PRN (17:15)
[2023-06-16] MEDS ORDERED: MUPIROCIN 2% TOPICAL OINTMENT 22 GM NS PRN (17:15)
[2023-06-16] MEDS ORDERED: NIFEdipine 30 MG TAB.ER.24 PO SCH (18:00)
[2023-06-16 19:50] VITALS: BP_SYST 141; PULSE 59; RESP 17; TEMP 97.3; O2SAT 92
[2023-06-16] MEDS ORDERED: ATORVASTATIN 20 MG TABLET PO SCH (21:00)
[2023-06-16] MEDS: HEPARIN SODIUM,PORCINE 5,000 UNITS/ML VIAL SUBCUT SCH (21:09)
[2023-06-16] MEDS: GABAPENTIN 300 MG CAPSULE PO SCH (21:10)
[2023-06-16] MEDS: MORPHINE 2 MG/ML INJ. SYRINGE IVP PRN (21:12)
[2023-06-17] VITALS (10 sets, daily range): BP systolic 113–192; PULSE 55–71; RESP 15–19; TEMP 96.1–98.1; O2SAT 95–98
[2023-06-17] MEDS: MORPHINE 2 MG/ML INJ. SYRINGE IVP PRN ×2 (03:41→09:31)
[2023-06-17 05:17] LABS: BASOPHILS # (AUTO) 0.1 K/uL (0.0-0.2); BASOPHILS % (AUTO) 0.6 % (0.0-2.0); EOSINOPHILS # (AUTO) 0.6 K/uL (0.0-0.4); EOSINOPHILS % (AUTO) 6.2 % (0.0-4.0); HEMOGLOBIN 10.3 g/dL (14.0-18.0); LYMPHOCYTES # (AUTO) 1.5 K/uL (1.0-5.5); LYMPHOCYTES % (AUTO) 16.1 % (20.5-51.5); MEAN CORPUSCULAR HEMOGLOBIN 27 pg (27-31); MEAN CORPUSCULAR HGB CONC 32 % (32-36); MEAN CORPUSCULAR VOLUME 83 fL (79.0-98.0); MONOCYTES # (AUTO) 0.6 K/uL (0.0-1.0); NEUTROPHILS # (AUTO) 6.6 K/uL (1.8-7.7); NEUTROPHILS % (AUTO) 71.1 % (40.0-70.0); PLATELET COUNT (AUTO) 212 K/uL (130-430); RED BLOOD CELL COUNT(AUTO) 3.86 MIL/uL (4.2-6.2); RED CELL DISTRIBUTION WIDTH 15.1 % (9.0-15.0); WHITE BLOOD COUNT (AUTO) 9.3 K/uL (4.8-10.8)
[2023-06-17 05:36] LABS: CALCIUM 8.5 mg/dL (8.4-11.0); POTASSIUM 4.2 mmol/L (3.5-5.1)
[2023-06-17] MEDS: glipiZIDE XL 5 MG TAB ( GLUCOTROL XL) PO SCH ×2 (08:46→17:06)
[2023-06-17] MEDS: GABAPENTIN 300 MG CAPSULE PO SCH (08:46)
[2023-06-17] MEDS: metFORMIN HCL 500 MG TABLET PO SCH ×2 (08:46→17:06)
[2023-06-17] MEDS: HEPARIN SODIUM,PORCINE 5,000 UNITS/ML VIAL SUBCUT SCH (08:48)
[2023-06-17] MEDS ORDERED: ESCITALOPRAM OXALATE 10 MG TABLET PO SCH (09:00)
[2023-06-17] MEDS ORDERED: CITALOPRAM HYDROBROMIDE 20 MG TABLET PO SCH (09:00)
[2023-06-17] MEDS ORDERED: FUROSEMIDE 40 MG TABLET PO SCH (09:00)
[2023-06-17] MEDS ORDERED: ASPIRIN 81 MG TAB.CHEW PO SCH (09:00)
[2023-06-17] MEDS ORDERED: cloNIDine HCL 0.1 MG TABLET PO ONE (12:15)
[2023-06-17] MEDS ORDERED: NIFEdipine 30 MG TAB.ER.24 PO ONE (13:30)
[2023-06-17] MEDS ORDERED: hydrALAZINE HCL 20 MG/ML VIAL IVP ONE (14:30)
[2023-06-17] MEDS ORDERED: hydrALAZINE HCL 25 MG TABLET PO SCH (18:00)
[2023-06-18] MEDS ORDERED: lisinopriL 20 MG TABLET PO SCH (09:00)
== END 2023-06-17 19:45 ==
LOC: SED 13:23 → SMU 16:56 → INTOOBSV 16:56 → SMU 18:40
PROVIDERS: ADMIT General Practice; ATTEND General Practice
DX: S09.90XA Unspecified injury of head, initial encounter (principal); R26.81 Unsteadiness on feet; E11.9 Type 2 diabetes mellitus without complications; I11.0 Hypertensive heart disease with heart failure; I50.9 Heart failure, unspecified; F32.A Depression, unspecified; N40.0 Benign prostatic hyperplasia without lower urinary tract symptoms; E86.0 Dehydration; Z91.199 Patient's noncompliance with other medical treatment and regimen due to unspecified reason; Z79.899 Other long term (current) drug therapy; Z86.73 Personal history of transient ischemic attack (TIA), and cerebral infarction without residual deficits; W01.0XXA Fall on same level from slipping, tripping and stumbling without subsequent striking against object, initial encounter; Y93.89 Activity, other specified; Y92.89 Other specified places as the place of occurrence of the external cause; Y99.8 Other external cause status
CPT/HCPCS: 96361 ×2; 96372 ×3; 96376 ×2; 80053; 82962 ×2; 83037; 83880; 85025 ×2; 84484; 36415 ×2; 93005; 71045; 72100; 72220; 73564; 70450; 76376; 99285; 96374; 96375 ×2; 80048; 83735; 87081; 97112; 97530; 97116; 97162; J1644 ×2; J1885; J2405; J2270 ×3; G0378 ×2; J0360

== ENCOUNTER 2024-05-04 18:44 | Inpatient (IN) | payer MEDICAID ==
[~2024-05-04] VITALS: Ht 175.3 cm; Wt 139.7 kg
[~2024-05-04 18:44] MED LIST changes: +APIX5TAB PO; -ASA81 PO; -ATOR40TA68 PO; -BACTROBAN TP; -CLON0.1T PO; +DICL100G60 TP; +DOXY100C5 PO; -ESCI10TA PO; -GLIP5TAB26 PO; -HYDR-4039 PO; -INSU100V44; +INSU100V44 SQ; -INSU100V9 SQ; +INSU100V9 SUBCUT; +LIP40 PO; -LISI40TA13 PO; +LOSA-415 PO; -NIFE-34 PO; +NOR10 PO; -POLY17PO4 PO; +TAMS0.4C96 PO
[2024-05-04 18:51] VITALS: BP_SYST 138; PULSE 69; RESP 16; TEMP 98.1; O2SAT 94
[2024-05-04 19:37] LABS: BASOPHILS % (AUTO) 0.4 % (0.0-2.0); EOSINOPHILS # (AUTO) 0.4 K/uL (0.0-0.4); EOSINOPHILS % (AUTO) 3.7 % (0.0-4.0); HEMOGLOBIN 10.8 g/dL (14.0-18.0); LYMPHOCYTES # (AUTO) 1.2 K/uL (1.0-5.5); LYMPHOCYTES % (AUTO) 11.6 % (20.5-51.5); MEAN CORPUSCULAR HEMOGLOBIN 27 pg (27-31); MEAN CORPUSCULAR HGB CONC 34 % (32-36); MEAN CORPUSCULAR VOLUME 81 fL (79.0-98.0); MONOCYTES # (AUTO) 0.7 K/uL (0.0-1.0); MONOCYTES % (AUTO) 6.8 % (1.7-9.3); NEUTROPHILS # (AUTO) 7.7 K/uL (1.8-7.7); NEUTROPHILS % (AUTO) 77.5 % (40.0-70.0); PLATELET COUNT (AUTO) 192 K/uL (130-430); RED BLOOD CELL COUNT(AUTO) 3.97 MIL/uL (4.2-6.2); RED CELL DISTRIBUTION WIDTH 18.2 % (9.0-15.0)
[2024-05-04 20:28] LABS: ANION GAP 7 (5-15); CALCIUM 8.5 mg/dL (8.4-11.0); CARBON DIOXIDE 29 mmol/L (23-29); CHLORIDE 107 mmol/L (98-107); CREATININE 1.68 mg/dL (0.55-1.30); GFR AFRICAN AMERICAN 54 mL/min (>90); GLUCOSE 323 mg/dL (74-106); POTASSIUM 4.2 mmol/L (3.5-5.1); SODIUM SERUM 143 mmol/L (136-145); UREA NITROGEN, BLOOD 32 mg/dL (8-21)
[2024-05-04 20:34] LABS: GFR NON AFRICAN-AMERICAN 44 mL/min (>90)
[2024-05-04] MEDS ORDERED: ACETAMINOPHEN 325 MG TABLET PO PRN (21:30)
[2024-05-04] MEDS ORDERED: HYDROcodone/ACETAMIN 5-325 MG TAB (NORCO/ VICODIN) PO PRN ×2 (21:30→22:45)
[2024-05-04] MEDS: PROCHLORPERAZINE EDISYLATE 10 MG/2 ML VIAL IVP ONE (21:31)
[2024-05-04] MEDS: MORPHINE 2 MG/ML INJ. SYRINGE IVP ONE (21:32)
[2024-05-04] MEDS: IBUPROFEN 600 MG TABLET PO ONE (21:34)
[2024-05-04] MEDS ORDERED: TRAZ-250 PO (22:32)
[2024-05-04] MEDS ORDERED: HYDR50TA44 PO (22:32)
[2024-05-04] MEDS ORDERED: IPRA3AMP9 HHN (22:32)
[2024-05-04] MEDS ORDERED: DOCU-156 PO (22:32)
[2024-05-04] MEDS ORDERED: SACC250C3 PO (22:32)
[2024-05-04] MEDS ORDERED: ROSU10TA72 PO (22:32)
[2024-05-04] MEDS ORDERED: GABA-331 PO (22:32)
[2024-05-04] MEDS ORDERED: NITR0.4T47 SL (22:32)
[2024-05-04] MEDS ORDERED: ACET325T53 PO (22:32)
[2024-05-04] MEDS ORDERED: BUME2TAB7 PO (22:32)
[2024-05-04] MEDS ORDERED: FLUT16SP16 NS (22:32)
[2024-05-04] MEDS ORDERED: GLIP5TAB23 PO (22:32)
[2024-05-04] MEDS ORDERED: DAPA10TA PO (22:32)
[2024-05-04] MEDS ORDERED: HYDR-3917 PO (22:32)
[2024-05-04] MEDS ORDERED: INSU100I56 SUBCUT (22:32)
[2024-05-04] MEDS ORDERED: SACU1TAB7 PO (22:32)
[2024-05-04] MEDS ORDERED: NALOXONE HCL 0.4 MG/ML AMP (NARCAN) IVP PRN (22:45)
[2024-05-04] MEDS ORDERED: IPRATROPIUM/ALBUTEROL SULFATE 3 ML AMPUL.NEB (DUONEB) INH PRN (22:45)
[2024-05-04] MEDS ORDERED: ONDANSETRON HCL 4 MG/2 ML VIAL IVP PRN (22:45)
[2024-05-04] MEDS ORDERED: LORazepam 2 MG/ML VIAL IVP PRN (22:45)
[2024-05-04] MEDS ORDERED: NITROGLYCERIN 0.4 MG TAB.SUBL SL PRN (22:45)
[2024-05-04 23:03] VITALS: BP_SYST 133; PULSE 58; RESP 18; TEMP 98.6
[2024-05-05 04:39] VITALS: BP_SYST 133; PULSE 58; O2SAT 95
[2024-05-05] MEDS: NORMAL SALINE 5 ML DISP.SYRIN IVF SCH (06:58)
[2024-05-05 07:16] LABS: BASOPHILS # (AUTO) 0.1 K/uL (0.0-0.2); BASOPHILS % (AUTO) 0.7 % (0.0-2.0); EOSINOPHILS # (AUTO) 0.4 K/uL (0.0-0.4); EOSINOPHILS % (AUTO) 4.8 % (0.0-4.0); HEMOGLOBIN 10.6 g/dL (14.0-18.0); LYMPHOCYTES # (AUTO) 1.4 K/uL (1.0-5.5); MEAN CORPUSCULAR HEMOGLOBIN 26 pg (27-31); MEAN CORPUSCULAR HGB CONC 32 % (32-36); MEAN CORPUSCULAR VOLUME 82 fL (79.0-98.0); MONOCYTES # (AUTO) 0.8 K/uL (0.0-1.0); MONOCYTES % (AUTO) 10.7 % (1.7-9.3); NEUTROPHILS # (AUTO) 5.1 K/uL (1.8-7.7); NEUTROPHILS % (AUTO) 65.8 % (40.0-70.0); PLATELET COUNT (AUTO) 165 K/uL (130-430); RED BLOOD CELL COUNT(AUTO) 4.03 MIL/uL (4.2-6.2); RED CELL DISTRIBUTION WIDTH 17.5 % (9.0-15.0); WHITE BLOOD COUNT (AUTO) 7.8 K/uL (4.8-10.8)
[2024-05-05 07:46] LABS: ALBUMIN 2.8 g/dL (3.4-4.8); CALCIUM 8.3 mg/dL (8.4-11.0); CREATININE 1.38 mg/dL (0.55-1.30); PHOSPHORUS 4.5 mg/dL (2.7-4.5); TOTAL BILIRUBIN 0.3 mg/dL (0.0-1.0); TOTAL PROTEIN, SERUM 6.2 g/dL (6.4-8.3)
[2024-05-05 08:00] VITALS: BP_SYST 176; PULSE 62; RESP 17; TEMP 98.7; O2SAT 95
[2024-05-05] MEDS: amLODIPine BESYLATE 10 MG TABLET PO SCH (08:33)
[2024-05-05] MEDS: hydrALAZINE HCL 25 MG TABLET PO SCH (08:33)
[2024-05-05] MEDS: GABAPENTIN 300 MG CAPSULE PO SCH (08:34)
[2024-05-05] MEDS: APIXABAN 2.5 MG TABLET PO SCH (08:37)
[2024-05-05] MEDS ORDERED: FLUTICASONE PROPIONATE 50 mCg/SPRAY 16 GM NS SCH (09:00)
[2024-05-05] MEDS ORDERED: SACCHAROMYCES BOULARDII 250 MG CAPSULE (FLORASTOR) PO SCH (09:00)
[2024-05-05] MEDS ORDERED: NON-FORMULARY MEDICATION (Diclofenac Sodium 1 APPLIC) TP SCH (09:00)
[2024-05-05] MEDS ORDERED: NON-FORMULARY MEDICATION (Sacubitril/Valsartan (Entresto 49 mg-51 mg Tablet) 1 EACH) PO SCH (09:00)
[2024-05-05] MEDS ORDERED: NON-FORMULARY MEDICATION (Dapagliflozin Propanediol (Farxiga) 1 TAB) PO SCH (09:00)
[2024-05-05] MEDS: LACTOBACILLUS RHAMNOSUS GG 1 CAP CAPSULE PO SCH (10:18)
[2024-05-05] MEDS: BUMETANIDE 1 MG TABLET PO SCH (10:19)
[2024-05-05] MEDS: FLUTICASONE PROPIONATE 50 mCg/SPRAY 16 GM NS SCH (10:20)
[2024-05-05] MEDS: EMPAGLIFLOZIN 10 MG TABLET PO SCH (10:20)
[2024-05-05] MEDS ORDERED: DEXTROSE 50% JECT 50 ML DISP.SYRIN IVP PRN (12:30)
[2024-05-05] MEDS ORDERED: GLUCOSE (DEXTROSE) ORAL GEL -Adults PO PRN (12:30)
[2024-05-05] MEDS ORDERED: D5W 1,000 ML IV PRN (12:30)
[2024-05-05 12:48] VITALS: BP_SYST 135; PULSE 60; RESP 18; TEMP 97.6; O2SAT 96
[2024-05-05] MEDS: HYDROcodone/ACETAMIN 10-325 MG TAB PO PRN (14:49)
[2024-05-05] MEDS: INSULIN REGULAR, HUMAN 100 UNITS/ML, 3 ML VIAL (humuLIN R) SUBCUT PRN (16:39)
[2024-05-05 16:47] VITALS: BP_SYST 135; PULSE 63; RESP 18; TEMP 97.8; O2SAT 97
[2024-05-05 20:00] VITALS: BP_SYST 167; PULSE 67; RESP 18; TEMP 97.6; O2SAT 97
[2024-05-05] MEDS ORDERED: ROSUVASTATIN CALCIUM 5 MG/TAB (CRESTOR) PO SCH (21:00)
[2024-05-05] MEDS: ATORVASTATIN 20 MG TABLET PO SCH (21:52)
[2024-05-05] MEDS: traZODone HCL 50 MG TABLET (DESYREL) PO SCH (21:54)
[2024-05-05] MEDS: SACUBITRIL/VALSARTAN 24 MG-26 MG 1 TABLET PO SCH (21:54)
[2024-05-05] MEDS: DOCUSATE SODIUM 100 MG CAPSULE PO SCH (21:54)
[2024-05-05 22:20] VITALS: BP_SYST 97; PULSE 67; RESP 16; TEMP 97.6; O2SAT 82
[2024-05-06] MEDS ORDERED: BALSAM PERU/CASTOR OIL 56.7 GM OINT...G. TP SCH (09:00)
== END 2024-05-05 23:10 | disposition short-term general hospital (02) | DRG 203 ==
LOC: SED 18:44 → STU 21:29
PROVIDERS: ADMIT Preventive Medicine Preventive Medicine/Occupational Environmental Medicine; ATTEND Preventive Medicine Preventive Medicine/Occupational Environmental Medicine
DX: M94.0 Chondrocostal junction syndrome [Tietze] (principal); N17.0 Acute kidney failure with tubular necrosis; I50.9 Heart failure, unspecified; I11.0 Hypertensive heart disease with heart failure; Z79.01 Long term (current) use of anticoagulants; E11.9 Type 2 diabetes mellitus without complications; R10.9 Unspecified abdominal pain; E78.5 Hyperlipidemia, unspecified; I25.10 Atherosclerotic heart disease of native coronary artery without angina pectoris; N40.0 Benign prostatic hyperplasia without lower urinary tract symptoms; Z59.00 Homelessness unspecified; Z85.831 Personal history of malignant neoplasm of soft tissue; Z79.899 Other long term (current) drug therapy; Z88.8 Allergy status to other drugs, medicaments and biological substances; Z86.73 Personal history of transient ischemic attack (TIA), and cerebral infarction without residual deficits
CPT/HCPCS: 36415; 71045; 80048; 80053; 82948; 83735; 83880; 84100; 84484; 85025; 85379; 87081; 93005; 99285; G0378; J0780; J2270